=== PATIENT | male | born 1965 | race Caucasian/White ===

== ENCOUNTER 2017-06-26 19:45 | Inpatient (IN) | payer MEDICARE, OTHER ==
[2017-06-26 20:30] VITALS: BP 152/87; PULSE 58; RESP 18; TEMP 98; O2SAT 96
[2017-06-26] MEDS ORDERED: SODIUM CHLOR 0.9% 1000 ML INJ 1,000 ML IV ONE (20:49)
[2017-06-26] MEDS ORDERED: CALC0.25 PO (20:56)
[2017-06-26] MEDS ORDERED: DOXA1TAB43 PO (20:56)
[2017-06-26] MEDS ORDERED: OXYC1TAB63 PO (20:56)
[2017-06-26] MEDS ORDERED: TEMA30CA PO (20:56)
[2017-06-26] MEDS ORDERED: FURO1TAB60 PO (20:56)
[2017-06-26] MEDS ORDERED: METO-309 PO (20:56)
[2017-06-26] MEDS ORDERED: SUCR5CHW CHEW (20:56)
[2017-06-26] MEDS ORDERED: SODI650T PO (20:56)
[2017-06-26] MEDS ORDERED: NIFE60TA58 PO (20:56)
[2017-06-26] MEDS ORDERED: HYDR-3801 PO (20:56)
[2017-06-26] MEDS ORDERED: DIAZ5TAB PO (20:56)
[2017-06-26] MEDS ORDERED: LEVE250T5 PO (20:56)
[2017-06-26] MEDS ORDERED: PANT40TA3 PO (20:56)
[2017-06-26] MEDS ORDERED: DOXAZOSIN MESYLATE 4 MG TAB PO SCH (21:00)
[2017-06-26] MEDS ORDERED: TEMAZEPAM 15 MG CAP PO PRN (21:00)
[2017-06-26] MEDS ORDERED: DIAZEPAM 5 MG TAB PO PRN (21:00)
[2017-06-26] MEDS ORDERED: METOPROLOL TARTRATE 50 MG TAB PO SCH (21:00)
[2017-06-26] MEDS ORDERED: hydrALAZINE HCL 50 MG TAB PO SCH (21:30)
[2017-06-26] MEDS ORDERED: PANTOPRAZOLE SOD 40 MG DELAYED RELEASE TAB PO SCH (21:45)
[2017-06-26] MEDS ORDERED: levETIRAcetam 250 MG TAB PO SCH (21:45)
[2017-06-26] MEDS ORDERED: NIFEdipine 60 MG SUSTAINED RELEASE TAB PO SCH (21:45)
--- NOTE | 2017-06-26 21:49 | HHI.DCPOC ---
Discharge Care Plan Goals to Promote Your Health * To prevent worsening of your condition and complications, take all medications as prescribed * To maintain your health at the optimal level follow all discharge instructions Directions to Meet Your Goals Take your medications as prescribed Follow your dietary instruction Follow activity as directed Keep your appointments as scheduled Take your immunizations and boosters as scheduled If your symptoms worsen call your PCP, if no PCP go to Urgent Care Center or Emergency Room Smoking is Dangerous to Your Health. Avoid second hand smoke Call the 24-hour hour crisis hotline for domestic abuse at Meaghan Saleh MD Jun 26, 2017 21:49
--- NOTE | 2017-06-26 22:02 | HHI.HP ---
[facility] Non-Staff Admission Diagnosis Diagnoses: Travel History International Travel<30 Days: No Contact w/Intl Traveler <30 Da: No Traveled to Known Affected Are: No History of Present Illness 52-year-old male presents for a repeat to kidney transplant. 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 He returned to dialysis on 01/15/15. He is currently on CCPD. He has past medical history significant for post transplant diabetes, CVA with residual right-sided weakness, CAD and end-stage renal disease of unknown etiology. He will be admitted for possible transplant tomorrow morning. He has no complaints at this time. Review of Systems Denies fever or chills Denies blurry vision, otorrhea, rhinorrhea Denies sore throat and cough No chest pain, palpitations, shortness of breath No abdominal pain Denies constipation/diarrhea/nausea/vomiting Denies muscle pain/weakness No rashes Past Family Social History Past Medical History End-stage renal disease status post kidney transplant in 1996 Hypertension Diabetes History of CVA History of GI bleed while on Plavix Pericardial effusion July 2015 CAD Hyperlipidemia Past Surgical History Finger fracture repair Right femoral vein cannulation LAD stent Pericardial window Kidney transplant Reported Medications Reported Meds & Active Scripts Active Reported Levetiracetam 250 Mg Tab 250 Mg PO HS Velphoro (Sucroferric Oxyhydroxide) 500 Mg Chew 500 Mg CHEW TIDPC Calcitriol 0.25 Mcg Cap 0.25 Mcg PO DIRECTED 3 Days Lopressor (Metoprolol Tartrate) 50 Mg Tab 50 Mg PO BID Lasix (Furosemide) 40 Mg Tab 40 Mg PO DAILY Pantoprazole (Pantoprazole Sodium) 40 Mg Tab 40 Mg PO BID Sodium Bicarbonate 650 Mg Tab 650 Mg PO BIDPC Doxazosin (Doxazosin Mesylate) 8 Mg Tab 8 Mg PO BID Nifedipine ER 24 HR (Nifedipine) 60 Mg Tab 60 Mg PO BID Hydralazine (Hydralazine HCl) 100 Mg Tab 50 Mg PO BID Take with meals Oxycodone-Acetaminophen 5-325 mg Tab 1 Tab PO Q4H PRN Diazepam 5 Mg Tab 5 Mg PO BID PRN Temazepam 30 Mg Cap 30 Mg PO HS PRN Allergies: Coded Allergies: diphenhydramine (Verified Allergy, Mild, Insomnia, 06/26/17) atorvastatin (Unverified Allergy, Unknown, Hives, 03/21/17) clarithromycin (Unverified Allergy, Unknown, 03/21/17) lisinopril (Unverified Adverse Reaction, Unknown, Myalgias, 03/21/17) Family History No family history of coronary artery disease or diabetes Social History Never smoker. Rare alcohol. Denies marijuana or illicit drugs. Physical Exam Physical Exam GENERAL: male sitting up in bed SKIN: No rashes, ecchymoses or lesions. Cool and dry. HEAD: Atraumatic. Normocephalic. No temporal or scalp tenderness. EYES: Pupils equal round and reactive. Extraocular motions intact. No scleral icterus. No injection or drainage. ENT: Nose without bleeding, purulent drainage or septal hematoma. Throat without erythema, tonsillar hypertrophy or exudate. Uvula midline. Airway patent. NECK: Trachea midline. No JVD or lymphadenopathy. Supple, nontender, no meningeal signs. CARDIOVASCULAR: Regular rate and rhythm without murmurs, gallops, or rubs. RESPIRATORY: Clear to auscultation. Breath sounds equal bilaterally. No wheezes , rales, or rhonchi. GASTROINTESTINAL: Abdomen soft, non-tender, nondistended. No hepato-splenomegaly , or palpable masses. No guarding. PD catheter in place. MUSCULOSKELETAL: Extremities without clubbing, cyanosis, or edema. No joint tenderness, effusion, or edema noted. No calf tenderness. Negative Homans sign bilaterally. NEUROLOGICAL: Awake and alert. Cranial nerves II through XII intact. Motor and sensory grossly within normal limits. Normal speech. 3/5 right lower extremity strength. No facial droop or right upper extremity weakness. Caprini VTE Risk Assessment Caprini VTE Risk Assessment: No/Low Risk (score <= 1) Caprini Risk Assessment Model Point Value = 1 Point Value = 2 Point Value = 3 Point Value = 5 Age 41-60 Minor surgery BMI > 25 kg/m2 Swollen legs Varicose veins or History of unexplained or recurrent spontaneous Oral contraceptives or hormone replacement Sepsis (< 1 month) Serious lung disease, including pneumonia (< 1 month) Abnormal pulmonary function Acute myocardial infarction Congestive heart failure (< 1 month) History of inflammatory bowel disease Medical patient at bed rest Age 61-74 Arthroscopic surgery Major open surgery (> 45 min) Laparoscopic surgery (> 45 min) Malignancy Confined to bed (> 72 hours) Immobilizing plaster cast Central venous access Age >= 75 History of VTE Family history of VTE Factor V Leiden Prothrombin [id number] Lupus anticoagulant Anticardiolipin antibodies Elevated serum homocysteine Heparin-induced thrombocytopenia Other congenital or acquired thrombophilia Stroke (< 1 month) Elective arthroplasty Hip, pelvis, or leg fracture Acute spinal cord injury (< 1 month) Prophylaxis Regimen Total Risk Factor Score Risk Level Prophylaxis Regimen 0-1 Low Early ambulation 2 Moderate Order ONE of the following: *Sequential Compression Device (SCD) *Heparin 5000 units SQ BID 3-4 Higher Order ONE of the following medications: *Heparin 5000 units SQ TID *Enoxaparin/Lovenox 40 mg SQ daily (WT < 150 kg, CrCl > 30 mL/min) *Enoxaparin/Lovenox 30 mg SQ daily (WT < 150 kg, CrCl > 10-29 mL/min) *Enoxaparin/Lovenox 30 mg SQ BID (WT < 150 kg, CrCl > 30 mL/min) AND/OR *Sequential Compression Device (SCD) 5 or more Highest Order ONE of the following medications: *Heparin 5000 units SQ TID (Preferred with Epidurals) *Enoxaparin/Lovenox 40 mg SQ daily (WT < 150 kg, CrCl > 30 mL/min) *Enoxaparin/Lovenox 30 mg SQ daily (WT < 150 kg, CrCl > 10-29 mL/min) *Enoxaparin/Lovenox 30 mg SQ BID (WT < 150 kg, CrCl > 30 mL/min) AND *Sequential Compression Device (SCD) Assessment and Plan Assessment and Plan 52-year-old male with a past medical history of end-stage renal disease presents for a redo kidney transplant 1. Kidney transplant Spoke with business continuity coordinator Preop labs ordered including type and screen and 2 units packed red blood cells pending Nothing by mouth at midnight Consents will be obtained in the morning 2. ESRD on PD Dr. Guevara consulted, appreciate recommendations 3. Hypertension Continue home medications 4. Hyperlipidemia Continue on statin 5. Anxiety Continue home anxiety meds FEN Nothing by mouth NS at 40 cc/hour Holding pharmacologic anticoagulation in anticipation of OR tomorrow Physician Certification 2 Midnight Certification Type: Admission for Inpatient Services Order for Inpatient Services The services are ordered in accordance with Medicare regulations or non- Medicare payer requirements, as applicable. In the case of services not specified as inpatient-only, they are appropriately provided as inpatient services in accordance with the 2-midnight benchmark. Estimated LOS (days): 2 2 days is the estimated time the patient will need to remain in the hospital, assuming treatment plan goals are met and no additional complications. Post-Hospital Plan: Not yet determined Meaghan Saleh MD Jun 26, 2017 22:02
[2017-06-27] MEDS ORDERED: FUROSEMIDE 40 MG TAB PO SCH (09:00)
[2017-06-27] MEDS ORDERED: SODIUM BICARBONATE 650 MG TAB PO SCH (09:00)
[2017-06-27] MEDS ORDERED: SUCROFERRIC OXYHYDROXIDE 500 MG CHEW SCH (09:30)
[2017-06-27] MEDS ORDERED: [UNRECOGNIZED DRUG - OTHER] PO SCH (09:30)
== END 2017-06-26 22:00 | disposition home or self-care (01) | DRG 682 ==
LOC: HCPC 19:45 → OBSVTOIN 20:58
PROVIDERS: ADMIT Family Medicine; ATTEND Family Medicine
DX: I12.0 Hypertensive chronic kidney disease with stage 5 chronic kidney disease or end stage renal disease (principal); N18.6 End stage renal disease; Z94.0 Kidney transplant status; I69.351 Hemiplegia and hemiparesis following cerebral infarction affecting right dominant side; Z53.8 Procedure and treatment not carried out for other reasons; E78.5 Hyperlipidemia, unspecified; F41.9 Anxiety disorder, unspecified; I25.10 Atherosclerotic heart disease of native coronary artery without angina pectoris; E11.9 Type 2 diabetes mellitus without complications

== ENCOUNTER 2017-10-19 21:29 | Day surgery (SDC) | payer MEDICARE, OTHER ==
[~2017-10-19 21:29] MED LIST: CALC0.25 PO; DIAZ5TAB PO; DOXA1TAB43 PO; FURO1TAB60 PO; HYDR-3801 PO; LEVE250T5 PO; METO-309 PO; NIFE60TA58 PO; OXYC1TAB63 PO; PANT40TA3 PO; SODI650T PO; SUCR5CHW CHEW; TEMA30CA PO
== END 2017-10-19 22:45 | disposition home or self-care (01) ==
LOC: HSDC 21:29 → UNDOADMIN 21:29 → HCPC 21:29 → HSDC 22:45 → EDSTATUS 23:03
PROVIDERS: ATTEND Surgery
DX: N18.6 End stage renal disease (principal); Z53.9 Procedure and treatment not carried out, unspecified reason

== ENCOUNTER 2018-07-06 14:09 | Inpatient (IN) ==
--- NOTE | 2018-07-06 14:53 | ED ---
HPI General Chief Complaint: Psychiatric Symptoms Stated Complaint: psych eval Time Seen by Provider: 07/06/18 14:36 Source: family () Mode of arrival: ambulatory Limitations: altered mental status and other History of Present Illness HPI Narrative: Per manic episode patient taking medications, similar symptoms in November complaint: Reports altered mental status Onset (ago): day(s) (1) Duration: constant History of same: Yes Relieving factors: none Exacerbating factors: none Context: Denies recent alcohol abuse and not taking psychiatric medications Associated psychiatric symptoms: Reports racing thoughts and auditory hallucinations; Denies suicidal ideation Associated symptoms: Reports denies other symptoms Treatments prior to arrival: Reports none Related Data Home Medications Medication Instructions Recorded Confirmed aspirin [Aspir-81] 81 mg PO DAILY 07/06/18 07/06/18 carvedilol 37.5 mg PO BID 07/06/18 07/06/18 divalproex [Depakote ER] 750 mg PO BID 07/06/18 07/07/18 doxazosin 8 mg PO BID 07/06/18 07/07/18 hydralazine 50 mg PO TID 07/06/18 07/06/18 insulin glargine [Lantus U-100 6 units SUBCUT DAILY 07/06/18 07/06/18 Insulin] mycophenolate sodium 720 mg PO BID 07/06/18 07/07/18 nifedipine 60 mg PO BID 07/06/18 07/07/18 olanzapine [Zyprexa] 5 mg PO BID 07/06/18 07/07/18 prednisone 2.5 mg PO DAILY 07/06/18 07/06/18 sulfamethoxazole-trimethoprim 1 tab PO DAILY 07/06/18 07/06/18 [Bactrim] Calcium 600 + D(3) 4,800 mg PO DAILY 07/07/18 07/07/18 belatacept See Label Instructions .ROUTE 07/07/18 07/07/18 .COMPLEX Allergies Allergy/AdvReac Type Severity Reaction Status Date / Time diphenhydramine Allergy Mild Insomnia Verified 07/07/18 09:50 atorvastatin Allergy Unknown Hives Verified 07/07/18 09:50 clarithromycin Allergy Unknown Hives Verified 07/07/18 09:50 lisinopril AdvReac Unknown Myalgias Verified 07/07/18 09:50 Review of Systems ROS: all other systems reviewed are negative Psychiatric Reports behavioral changes, Reports confusion and Denies suicidal ideation PMFSH Social History Social History Substance History: No History of Abuse Second Hand Smoke Exposure: No Smoking Status: Former smoker How Often Do You Have a Drink Containing Alcohol: Unable to Obtain Recent Travel in [facility] within the Last 8 Weeks: No Recent Out of Country Travel within the Last 8 Weeks: No Immunization History Tetanus Immunization: Unsure Exam Narrative Exam Narrative: GENERAL: No acute distress SKIN: Focused skin assessment warm/dry. HEAD: Atraumatic. Normocephalic. EYES: Pupils equal and round. No scleral icterus. No injection or drainage. ENT: No nasal bleeding or discharge. Mucous membranes pink and moist. NECK: Trachea midline. No JVD. CARDIOVASCULAR: Regular rate and rhythm. No murmur appreciated. RESPIRATORY: No accessory muscle use. Clear to auscultation. Breath sounds equal bilaterally. GASTROINTESTINAL: Abdomen soft, non-tender, nondistended. Hepatic and splenic margins not palpable. MUSCULOSKELETAL: No obvious deformities. No clubbing. No cyanosis. No edema. NEUROLOGICAL: Awake and alert. No obvious cranial nerve deficits. Motor grossly within normal limits. Normal speech. PSYCHIATRIC: Pressured sentences, makes eye contact no suicidal or homicidal. Course Reevaluation(s) Reevaluation #1: Pending urinalysis, (d/w derrek orellana to f/u)low risk urosepsis with normal wbc/afebril. conversational with family bedside. No signs of acute medical emergency and can be disposition for psychiatric evaluation Time: 16:45 Initial Documented Vital Signs Temperature 98 F 07/06/18 14:20 Pulse Rate 75 07/06/18 14:20 Respiratory Rate 20 07/06/18 14:20 Blood Pressure 127/70 07/06/18 14:20 Pulse Oximetry 100 07/06/18 14:20 Last Documented Vital Signs Temperature 98.1 F 07/08/18 06:00 Pulse Rate 79 07/08/18 06:00 Respiratory Rate 20 07/08/18 06:00 Blood Pressure 163/88 H 07/08/18 06:00 Pulse Oximetry 98 07/08/18 06:00 Medical Decision Making MDM Narrative Medical decision making narrative: During reevaluation the patient was noted to be hypertensive of which he has a chronic long-term history, and presently he does not have his medications available to him and he has not taken it. Patient was noted to be hypertensive, and anxious. On reevaluation the family was advised to go get his antirejection medications and to provide those to him which the family did. Patient was provided with hydralazine IV x1 and Ativan 1 mg IV x1. The patient is now resting comfortably and sleeping with a blood pressure of 127/74. Patient is medically cleared for psychiatry Medical Screen Exam Complete: Yes Emergency Medical Condition: Yes Lab Data Result diagrams: 07/08/18 09:48 07/06/18 14:52 Lab Results 07/06/18 07/06/18 07/06/18 Range/Units 14:52 14:52 14:52 WBC 4.9 (4.0-11.0) th/mm3 RBC 4.18 L (4.50-5.90) mil/mm3 Hgb 14.0 (13.0-17.0) gm/dL Hct 41.3 (39.0-51.0) % MCV 98.7 (80.0-100.0) fL MCH 33.6 (27.0-34.0) pg MCHC 34.0 (32.0-36.0) % RDW 14.4 (11.6-17.2) % Plt Count 139 L (150-450) th/mm3 MPV 9.6 (7.0-11.0) fL Neut % (Auto) 76.9 H (16.0-70.0) % Lymph % (Auto) 7.2 L (9.0-44.0) % [place] % (Auto) 10.9 H (0.0-8.0) % Eos % (Auto) 4.6 H (0.0-4.0) % Baso % (Auto) 0.4 (0.0-2.0) % Neut # (Auto) 3.8 (1.8-7.7) th/mm3 Lymph # (Auto) 0.4 L (1.0-4.8) th/mm3 [place] # (Auto) 0.5 (0.0-0.9) th/mm3 Eos # (Auto) 0.2 (0.0-0.4) th/mm3 Baso # (Auto) 0.0 (0.0-0.2) th/mm3 WBC Differential . Differential Comment Auto diff final Sodium 135 L (136-145) meq/L Potassium 4.5 (3.5-5.1) meq/L Chloride 99 (98-107) meq/L Carbon Dioxide 30.5 (21.0-32.0) meq/L Anion Gap 6 (5-15) meq/L BUN 12 (7-18) mg/dL Creatinine 0.93 (0.60-1.30) mg/dL Estimated GFR 84 L (>89) mL/min POC Glucose (68-110) mg/dl Random Glucose 243 H (74-106) mg/dL Calcium 9.4 (8.5-10.1) mg/dL Magnesium 2.0 (1.5-2.5) mg/dL Total Bilirubin 0.3 (0.2-1.0) mg/dL AST 19 (15-37) U/L ALT 22 (12-78) U/L Alkaline Phosphatase 119 H (45-117) U/L Ammonia (11-32) mcmol/L Total Protein 7.0 (6.4-8.2) g/dL Albumin 3.6 (3.4-5.0) g/dL Triglycerides (42-150) mg/dL Cholesterol (120-200) mg/dL LDL Cholesterol, Calc (0-99) mg/dL HDL Cholesterol (40.0-60.0) mg/dL Cholesterol/HDL Ratio Ratio TSH 0.896 (0.358-3.740) uIU/mL Urine Color (Yellw/Straw) Urine Clarity (Clear) Urine pH (5.0-8.5) Ur Specific [place] (1.002-1.035) Urine Protein (Neg-Trace) mg/dL Urine Glucose (UA) (Negative) mg/dL Urine Ketones (Negative) mg/dL Urine Occult Blood (Negative) Urine Nitrate (Negative) Urine Bilirubin (Negative) Urine Urobilinogen (Less than 2) mg/dL Ur Leukocyte Esterase (Negative) Urine WBC (0-5) /hpf Amorphous Sediment (None) /hpf Ur Microscopic Review Salicylates Less than 1.7 L (2.8-20.0) mg/dL Urine Opiates Screen (Neg) Acetaminophen Less than 2.0 L (10.0-30.0) mcg/mL Ur Barbiturates Screen (Neg) Valproic Acid (50-100) mcg/mL Ur Amphetamines Screen (Neg) U Benzodiazepines Scrn (Neg) Urine Cocaine Screen (Neg) U Cannabinoids Screen (Neg) Serum Alcohol 4 (0-5) mg/dL 07/06/18 07/06/18 07/06/18 Range/Units 14:52 14:52 15:10 WBC (4.0-11.0) th/mm3 RBC (4.50-5.90) mil/mm3 Hgb (13.0-17.0) gm/dL Hct (39.0-51.0) % MCV (80.0-100.0) fL MCH (27.0-34.0) pg MCHC (32.0-36.0) % RDW (11.6-17.2) % Plt Count (150-450) th/mm3 MPV (7.0-11.0) fL Neut % (Auto) (16.0-70.0) % Lymph % (Auto) (9.0-44.0) % [place] % (Auto) (0.0-8.0) % Eos % (Auto) (0.0-4.0) % Baso % (Auto) (0.0-2.0) % Neut # (Auto) (1.8-7.7) th/mm3 Lymph # (Auto) (1.0-4.8) th/mm3 [place] # (Auto) (0.0-0.9) th/mm3 Eos # (Auto) (0.0-0.4) th/mm3 Baso # (Auto) (0.0-0.2) th/mm3 WBC Differential Differential Comment Sodium (136-145) meq/L Potassium (3.5-5.1) meq/L Chloride (98-107) meq/L Carbon Dioxide (21.0-32.0) meq/L Anion Gap (5-15) meq/L BUN (7-18) mg/dL Creatinine (0.60-1.30) mg/dL Estimated GFR (>89) mL/min POC Glucose (68-110) mg/dl Random Glucose (74-106) mg/dL Calcium (8.5-10.1) mg/dL Magnesium (1.5-2.5) mg/dL Total Bilirubin (0.2-1.0) mg/dL AST (15-37) U/L ALT (12-78) U/L Alkaline Phosphatase (45-117) U/L Ammonia 36 H (11-32) mcmol/L Total Protein (6.4-8.2) g/dL Albumin (3.4-5.0) g/dL Triglycerides (42-150) mg/dL Cholesterol (120-200) mg/dL LDL Cholesterol, Calc (0-99) mg/dL HDL Cholesterol (40.0-60.0) mg/dL Cholesterol/HDL Ratio Ratio TSH (0.358-3.740) uIU/mL Urine Color Straw (Yellw/Straw) Urine Clarity Clear (Clear) Urine pH 8.0 (5.0-8.5) Ur Specific [place] 1.009 (1.002-1.035) Urine Protein Negative (Neg-Trace) mg/dL Urine Glucose (UA) 150 H (Negative) mg/dL Urine Ketones Negative (Negative) mg/dL Urine Occult Blood Negative (Negative) Urine Nitrate Negative (Negative) Urine Bilirubin Negative (Negative) Urine Urobilinogen Less than 2 (Less than 2) mg/dL Ur Leukocyte Esterase Negative (Negative) Urine WBC Less than 1 (0-5) /hpf Amorphous Sediment Rare H (None) /hpf Ur Microscopic Review Not Reportable Salicylates (2.8-20.0) mg/dL Urine Opiates Screen Neg (Neg) Acetaminophen (10.0-30.0) mcg/mL Ur Barbiturates Screen Neg (Neg) Valproic Acid (50-100) mcg/mL Ur Amphetamines Screen Neg (Neg) U Benzodiazepines Scrn Neg (Neg) Urine Cocaine Screen Neg (Neg) U Cannabinoids Screen Neg (Neg) Serum Alcohol (0-5) mg/dL 07/06/18 07/07/18 07/07/18 Range/Units 15:10 16:54 20:17 WBC (4.0-11.0) th/mm3 RBC (4.50-5.90) mil/mm3 Hgb (13.0-17.0) gm/dL Hct (39.0-51.0) % MCV (80.0-100.0) fL MCH (27.0-34.0) pg MCHC (32.0-36.0) % RDW (11.6-17.2) % Plt Count (150-450) th/mm3 MPV (7.0-11.0) fL Neut % (Auto) (16.0-70.0) % Lymph % (Auto) (9.0-44.0) % [place] % (Auto) (0.0-8.0) % Eos % (Auto) (0.0-4.0) % Baso % (Auto) (0.0-2.0) % Neut # (Auto) (1.8-7.7) th/mm3 Lymph # (Auto) (1.0-4.8) th/mm3 [place] # (Auto) (0.0-0.9) th/mm3 Eos # (Auto) (0.0-0.4) th/mm3 Baso # (Auto) (0.0-0.2) th/mm3 WBC Differential Differential Comment Sodium (136-145) meq/L Potassium (3.5-5.1) meq/L Chloride (98-107) meq/L Carbon Dioxide (21.0-32.0) meq/L Anion Gap (5-15) meq/L BUN (7-18) mg/dL Creatinine (0.60-1.30) mg/dL Estimated GFR (>89) mL/min POC Glucose 165 H 142 H (68-110) mg/dl Random Glucose (74-106) mg/dL Calcium (8.5-10.1) mg/dL Magnesium (1.5-2.5) mg/dL Total Bilirubin (0.2-1.0) mg/dL AST (15-37) U/L ALT (12-78) U/L Alkaline Phosphatase (45-117) U/L Ammonia (11-32) mcmol/L Total Protein (6.4-8.2) g/dL Albumin (3.4-5.0) g/dL Triglycerides (42-150) mg/dL Cholesterol (120-200) mg/dL LDL Cholesterol, Calc (0-99) mg/dL HDL Cholesterol (40.0-60.0) mg/dL Cholesterol/HDL Ratio Ratio TSH (0.358-3.740) uIU/mL Urine Color (Yellw/Straw) Urine Clarity (Clear) Urine pH (5.0-8.5) Ur Specific [place] (1.002-1.035) Urine Protein (Neg-Trace) mg/dL Urine Glucose (UA) (Negative) mg/dL Urine Ketones (Negative) mg/dL Urine Occult Blood (Negative) Urine Nitrate (Negative) Urine Bilirubin (Negative) Urine Urobilinogen (Less than 2) mg/dL Ur Leukocyte Esterase (Negative) Urine WBC (0-5) /hpf Amorphous Sediment (None) /hpf Ur Microscopic Review Salicylates (2.8-20.0) mg/dL Urine Opiates Screen (Neg) Acetaminophen (10.0-30.0) mcg/mL Ur Barbiturates Screen (Neg) Valproic Acid 77 (50-100) mcg/mL Ur Amphetamines Screen (Neg) U Benzodiazepines Scrn (Neg) Urine Cocaine Screen (Neg) U Cannabinoids Screen (Neg) Serum Alcohol (0-5) mg/dL 07/08/18 07/08/18 07/08/18 Range/Units 06:09 09:48 09:48 WBC 5.4 (4.0-11.0) th/mm3 RBC 4.32 L (4.50-5.90) mil/mm3 Hgb 14.4 (13.0-17.0) gm/dL Hct 43.0 (39.0-51.0) % MCV 99.6 (80.0-100.0) fL MCH 33.4 (27.0-34.0) pg MCHC 33.6 (32.0-36.0) % RDW 14.3 (11.6-17.2) % Plt Count 164 (150-450) th/mm3 MPV 9.3 (7.0-11.0) fL Neut % (Auto) 74.5 H (16.0-70.0) % Lymph % (Auto) 8.1 L (9.0-44.0) % [place] % (Auto) 12.0 H (0.0-8.0) % Eos % (Auto) 4.7 H (0.0-4.0) % Baso % (Auto) 0.7 (0.0-2.0) % Neut # (Auto) 4.0 (1.8-7.7) th/mm3 Lymph # (Auto) 0.4 L (1.0-4.8) th/mm3 [place] # (Auto) 0.6 (0.0-0.9) th/mm3 Eos # (Auto) 0.3 (0.0-0.4) th/mm3 Baso # (Auto) 0.0 (0.0-0.2) th/mm3 WBC Differential . Differential Comment Auto diff final Sodium (136-145) meq/L Potassium (3.5-5.1) meq/L Chloride (98-107) meq/L Carbon Dioxide (21.0-32.0) meq/L Anion Gap (5-15) meq/L BUN (7-18) mg/dL Creatinine (0.60-1.30) mg/dL Estimated GFR (>89) mL/min POC Glucose 151 H (68-110) mg/dl Random Glucose (74-106) mg/dL Calcium (8.5-10.1) mg/dL Magnesium (1.5-2.5) mg/dL Total Bilirubin (0.2-1.0) mg/dL AST (15-37) U/L ALT (12-78) U/L Alkaline Phosphatase (45-117) U/L Ammonia (11-32) mcmol/L Total Protein (6.4-8.2) g/dL Albumin (3.4-5.0) g/dL Triglycerides 112 (42-150) mg/dL Cholesterol 166 (120-200) mg/dL LDL Cholesterol, Calc 94 (0-99) mg/dL HDL Cholesterol 50.0 (40.0-60.0) mg/dL Cholesterol/HDL Ratio 3.32 Ratio TSH 0.897 (0.358-3.740) uIU/mL Urine Color (Yellw/Straw) Urine Clarity (Clear) Urine pH (5.0-8.5) Ur Specific [place] (1.002-1.035) Urine Protein (Neg-Trace) mg/dL Urine Glucose (UA) (Negative) mg/dL Urine Ketones (Negative) mg/dL Urine Occult Blood (Negative) Urine Nitrate (Negative) Urine Bilirubin (Negative) Urine Urobilinogen (Less than 2) mg/dL Ur Leukocyte Esterase (Negative) Urine WBC (0-5) /hpf Amorphous Sediment (None) /hpf Ur Microscopic Review Salicylates (2.8-20.0) mg/dL Urine Opiates Screen (Neg) Acetaminophen (10.0-30.0) mcg/mL Ur Barbiturates Screen (Neg) Valproic Acid 61 (50-100) mcg/mL Ur Amphetamines Screen (Neg) U Benzodiazepines Scrn (Neg) Urine Cocaine Screen (Neg) U Cannabinoids Screen (Neg) Serum Alcohol (0-5) mg/dL 07/08/18 Range/Units 11:38 WBC (4.0-11.0) th/mm3 RBC (4.50-5.90) mil/mm3 Hgb (13.0-17.0) gm/dL Hct (39.0-51.0) % MCV (80.0-100.0) fL MCH (27.0-34.0) pg MCHC (32.0-36.0) % RDW (11.6-17.2) % Plt Count (150-450) th/mm3 MPV (7.0-11.0) fL Neut % (Auto) (16.0-70.0) % Lymph % (Auto) (9.0-44.0) % [place] % (Auto) (0.0-8.0) % Eos % (Auto) (0.0-4.0) % Baso % (Auto) (0.0-2.0) % Neut # (Auto) (1.8-7.7) th/mm3 Lymph # (Auto) (1.0-4.8) th/mm3 [place] # (Auto) (0.0-0.9) th/mm3 Eos # (Auto) (0.0-0.4) th/mm3 Baso # (Auto) (0.0-0.2) th/mm3 WBC Differential Differential Comment Sodium (136-145) meq/L Potassium (3.5-5.1) meq/L Chloride (98-107) meq/L Carbon Dioxide (21.0-32.0) meq/L Anion Gap (5-15) meq/L BUN (7-18) mg/dL Creatinine (0.60-1.30) mg/dL Estimated GFR (>89) mL/min POC Glucose 156 H (68-110) mg/dl Random Glucose (74-106) mg/dL Calcium (8.5-10.1) mg/dL Magnesium (1.5-2.5) mg/dL Total Bilirubin (0.2-1.0) mg/dL AST (15-37) U/L ALT (12-78) U/L Alkaline Phosphatase (45-117) U/L Ammonia (11-32) mcmol/L Total Protein (6.4-8.2) g/dL Albumin (3.4-5.0) g/dL Triglycerides (42-150) mg/dL Cholesterol (120-200) mg/dL LDL Cholesterol, Calc (0-99) mg/dL HDL Cholesterol (40.0-60.0) mg/dL Cholesterol/HDL Ratio Ratio TSH (0.358-3.740) uIU/mL Urine Color (Yellw/Straw) Urine Clarity (Clear) Urine pH (5.0-8.5) Ur Specific [place] (1.002-1.035) Urine Protein (Neg-Trace) mg/dL Urine Glucose (UA) (Negative) mg/dL Urine Ketones (Negative) mg/dL Urine Occult Blood (Negative) Urine Nitrate (Negative) Urine Bilirubin (Negative) Urine Urobilinogen (Less than 2) mg/dL Ur Leukocyte Esterase (Negative) Urine WBC (0-5) /hpf Amorphous Sediment (None) /hpf Ur Microscopic Review Salicylates (2.8-20.0) mg/dL Urine Opiates Screen (Neg) Acetaminophen (10.0-30.0) mcg/mL Ur Barbiturates Screen (Neg) Valproic Acid (50-100) mcg/mL Ur Amphetamines Screen (Neg) U Benzodiazepines Scrn (Neg) Urine Cocaine Screen (Neg) U Cannabinoids Screen (Neg) Serum Alcohol (0-5) mg/dL Imaging Data Radiologist's impression: Head CT 07/06/18 15:38 CONCLUSION: 1. 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 2. Periventricular areas of decreased attenuation bilaterally which are most severe involving the left posterior parietal white matter consistent with ischemic changes and/or possible encephalomalacia of the posterior parietal lobe. 3. Mild cerebral atrophy. 4. No acute hemorrhage, midline shift or extra-axial fluid collections. . Chest X-Ray 07/06/18 15:40 CONCLUSION: No acute cardiopulmonary process. Discharge Plan Discharge Disposition Patient Disposition: ED Admit(ED Internal Use Only) Discharge Condition Condition: Stable Discharge Details Diagnosis: Bipolar affect, depressed Physicians Team ED Provider: Mihai Mcqueen Primary Care Provider: UNKNOWN, Attending Provider: Jonathan Ronquillo Other Providers: Bryant Mccabe ; Antonia Garrett Discharge Interventions Interventions: ED Discharge Assessment Last Done: 07/07/18 19:36 Status ED Status: Left Department Discharge Information Discharge Date/Time: 07/07/18 19:36
[2018-07-06 15:22] LABS: Baso % (Auto) 0.4 % (0.0-2.0); Eos # (Auto) 0.2 th/mm3 (0.0-0.4); Eos % (Auto) 4.6 % (0.0-4.0); Hematocrit 41.3 % (39.0-51.0); Lymph # (Auto) 0.4 th/mm3 (1.0-4.8); Lymph % (Auto) 7.2 % (9.0-44.0); Mean Corpuscular Hemoglobin 33.6 pg (27.0-34.0); Mean Corpuscular Volume 98.7 fL (80.0-100.0); Mean Platelet Volume 9.6 fL (7.0-11.0); Mono # (Auto) 0.5 th/mm3 (0.0-0.9); Mono % (Auto) 10.9 % (0.0-8.0); Neut # (Auto) 3.8 th/mm3 (1.8-7.7); Neut % (Auto) 76.9 % (16.0-70.0); Platelet Count 139 th/mm3 (150-450); Red Blood Count 4.18 mil/mm3 (4.50-5.90); Red Cell Distribution Width 14.4 % (11.6-17.2); White Blood Count 4.9 th/mm3 (4.0-11.0)
[2018-07-06 15:34] LABS: Amphetamine Screen,Urine Neg (Neg); Barbiturate Screen,Urine Neg (Neg); Cannabinoid Screen,Urine Neg (Neg); Cocaine Screen,Urine Neg (Neg)
[2018-07-06 15:36] LABS: Opiate Screen,Urine Neg (Neg)
[2018-07-06 15:41] LABS: Anion Gap 6 meq/L (5-15)
[2018-07-06 16:03] LABS: Alanine Aminotransferase 22 U/L (12-78); Albumin 3.6 g/dL (3.4-5.0); Alcohol 4 mg/dL (0-5); Alkaline Phosphatase 119 U/L (45-117); Aspartate Aminotransferase 19 U/L (15-37); Blood Urea Nitrogen 12 mg/dL (7-18); Calcium 9.4 mg/dL (8.5-10.1); Carbon Dioxide 30.5 meq/L (21.0-32.0); Chloride 99 meq/L (98-107); Glomerular Filtration Rate 84 mL/min (>89); Glucose,Random 243 mg/dL (74-106); Potassium 4.5 meq/L (3.5-5.1); Sodium 135 meq/L (136-145); Thyroid Stimulating Hormone 0.896 uIU/mL (0.358-3.740)
--- NOTE | 2018-07-06 16:06 | XR ---
EXAM DATE: 07/06/2018 4:03 PM EST AGE/SEX: 53 years / Male INDICATIONS: Cough, short of breath. CLINICAL DATA: This is the patient's initial encounter. Patient reports that signs and symptoms have been present for 1 day and indicates a pain score of 0/10. MEDICAL/SURGICAL HISTORY: None. None. COMPARISON: No prior exams available for comparison. FINDINGS: A single AP view of the chest demonstrates the lungs to be symmetrically aerated without evidence of mass, infiltrate or effusion. The cardiomediastinal contours are unremarkable. Osseous structures a re intact. CONCLUSION: No acute cardiopulmonary process. Electronically signed by: Bandar Escoto MD 07/06/2018 4:04 PM EST
--- NOTE | 2018-07-06 16:34 | CT ---
EXAM DATE: 07/06/2018 4:27 PM EST AGE/SEX: 53 years / Male INDICATIONS: Altered Mental Status CLINICAL DATA: This is the patient's initial encounter. Patient reports that signs and symptoms have been present for 1 day and indicates a pain score of 0/10. MEDICAL/SURGICAL HISTORY: None. Renal transplant. RADIATION DOSE: 56.35 CTDI (mGy) COMPARISON: No prior exams available for comparison. TECHNIQUE: CT of the head without contrast. Using automated exposure control and adjustment of the mA and/or kV according to patient size, radiation dose was kept as low as reasonably achievable to ob tain optimal diagnostic quality images. DICOM format image data is available electronically for revi ew and comparison. FINDINGS: Cerebrum: Old infarct involving the left thalamus is noted. Periventricular areas of decreased atten uation are noted within the left posterior parietal white matter consistent with ischemic changes and /or possible encephalomalacia. Mild cerebral atrophy is noted. No acute hemorrhage, midline shift or extra-axial fluid collections are noted.. Posterior Fossa: The cerebellum and brainstem are intact. The 4th ventricle is midline. The cerebe llopontine angle is unremarkable. Extracranial: The visualized portion of the orbits is intact. Skull: The calvaria is intact. No evidence of skull fracture. CONCLUSION: 1. 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 2. Periventricular areas of decreased attenuation bilaterally which are most severe involving the le ft posterior parietal white matter consistent with ischemic changes and/or possible encephalomalacia of the posterior parietal lobe. 3. Mild cerebral atrophy. 4. No acute hemorrhage, midline shift or extra-axial fluid collections. . Electronically signed by: Ashu Garcia MD 07/06/2018 4:33 PM EST
[2018-07-06 17:27] LABS: Amorphous Sediment,Urine Rare /hpf; Bilirubin,Urine Negative (Negative); Clarity,Urine Clear (Clear); Color,Urine Straw (Yellw/Straw); Glucose,Urine (UA) 150 mg/dL (Negative); Leukocyte Esterase,Urine Negative (Negative); Nitrite,Urine Negative (Negative); Specific Gravity,Urine 1.009 (1.002-1.035)
[2018-07-06] MEDS ORDERED: hydrALAZINE HCl Inj 20 MG/ML Vial IV.PUSH ONE (22:16)
[2018-07-07] MEDS ORDERED: Aluminum/Magnesium/Simethacone Susp 30 ML UDC PO PRN (12:58)
[2018-07-07] MEDS ORDERED: Senna/Docusate Sodium 8.6/50 MG Tablet PO PRN (12:58)
[2018-07-07] MEDS ORDERED: Bisacodyl 10 MG Supp RECTAL PRN (12:58)
--- NOTE | 2018-07-07 13:15 | P.HPPSY ---
Provisional Diagnosis Admission Date: July 07, 2018 13:02 [place] I.: Bipolar disorder, manic episode Competence Certification of Person's Competence To Provide Express and Informed Consent I have personally examined Arun Steel, a person being served at [facility] on, July 07, 2018 1306. Express and informed consent means consent voluntarily given in writing, by a competent person, after sufficient explanation and disclosure of the subject matter involved to enable the person to make a knowing and willful decision without any element of force, fraud, deceit, duress, or other form of constraint or coercion. This person is 18 years of age or older, is not now known to be incompetent to consent to treatment with a guardian advocate, and does not have a health care surrogate or proxy currently making medical treatment decisions. I have found this person to be one of the following: [] Competent to provide express and informed consent, as defined above, for voluntary admission to this facility and is competent to provide express and informed consent for treatment. He/she has the consistent capacity to make well reasoned, willful, and knowing decisions concerning his or her medical or mental health treatment. The person fully and consistently understands the purpose of the admission for examination/placement and is fully capable of personally exercising all rights [place]] Incompetent to provide express and informed consent to voluntary admission , and this is incompetent to provide express and informed consent to treatment. The person must be transferred to involuntary status and a petition for a guardian advocate filed with the Circuit Court. [] Refusing to provide express and informed consent to voluntary admission but is competent to provide express and informed consent for treatment. The person must be discharged or transferred to involuntary status. Form shall be completed within 24 hours of a person's arrival at the receiving facility and filed in the clinical record of each person: 1. Admitted on a voluntary basis 2. Permitted to provide express and informed consent to his/her own treatment 3. Allowed to transfer from involuntary to voluntary status 4. Prior to permitting a person to consent to his or her own treatment after having been previously found incompetent to consent to treatment. History of Present Illness Capacity: Lacks capacity History of Present Illness: Patient is a 53 y/o man, , domiciled with , unemployed with unclear past psychiatric history, prior psychiatric admissions, no prior suicide attempts, with past medical history of DM, renal transplant, brought in by EMS with stating patient having manic episode which upon evaluation was noted to have disorganized thought process, flight of ideas, tangential, pressured speech, unable to engage effectively in interview secondary to current manic symptoms which patient was admitted to the inpatient psychiatry unit for further evaluation and management. Patient was found lying hospital bed with sitter at bedside seen with nurse, noted to be, cooperative. Patient was noted to have disorganization during interview unable to provide any adequate history noted to have flight of ideas and tangential along with pressured speech. Patient would make nonsensical statements and at times would have loosening associations. Patient also reported having decreased episodes of sleep, mentioning wanting to spend his money to give away during [place], admitting to having rapid thoughts, but denying any suicidal homicidal ideations , patient denies any auditory or visual hallucinations. Collateral formation obtained from patient's stated that patient recently had a kidney transplant in November in [place] and was on a immunosuppressant, tacrolimus and had presented with manic symptoms at that time which concern of betsey induced by this medication was considered and was discontinued. She states that a month ago patient started doing "crazy things" and since has been on a different medication via IV infusion called belatacept which she missed 1 week ago and is administered monthly. She mentions that patient had previous psychiatric admissions recently which patient was at a [place] psychiatric facility from June 25- and a subsequent admission at [facility] in [place] from June 29- and was discharged. She states that yesterday patient has had at least 2 days without sleep, presenting as described above and states that patient has been compliant with medications. She states she is attempting to contact the clinic regarding his IV infusion of belatacept which she is overdue for. She agrees to consent to be patient's healthcare surrogate and guardian advocate for this admission. Discussion of having patient resume Depakote and olanzapine was reviewed with patient's and benefits/risks/adverse drug reactions/alternatives was reviewed as well which she agreed. Past psychiatric history: Previous psychiatric diagnoses of bipolar disorder, prior psychiatric admissions as stated above, no previous suicide attempts Substance use history: Denies Past medical history: Diabetes, recent renal transplant in November ([place]). Allergies: Diphenhydramine, atorvastatin, clarithromycin, lisinopril Social history: , has 2 children, domiciled . - Inpatient Certification I certify that the inpatient services were ordered in accordance with Medicare regulations governing the order. This includes certification that hospital inpatient services are reasonable and necessary and in the case of services not specified as inpatient-only under 42 CFR 419.22(n), that they are appropriately provided as inpatient services in accordance to with the 2-midnight benchmark under 43 CFR 412.3(e) I certify that inpatient psychiatric hospital services are medically necessary. Evaluation and treatment and/or diagnostic testing are expected to improve the patient's condition. The patient needs on a daily basis, active treatment furnished directly by or requiring the supervision of inpatient psychiatric facility personnel. Estimated Total Length of Stay (Days): 7 Plans for Post Hospital Care: Not yet determined Review of Systems All other systems reviewed negative except as stated in HPI [facility] - History History Provided By: Patient, Family Member, Medical Record - Tobacco History Smoking Status: Former smoker - Alcohol History How Often Do You Have a Drink Containing Alcohol: Unable to Obtain - Substance Use History Substance History: No History of Abuse - Travel History Recent Travel in the [place] Within the Last 8 Weeks: No Recent Travel Out of the Country Within the Last 8 Weeks: No - Immunization History Tetanus Immunization: Unsure Quality Measures - Psychiatric History Psychological trauma history: Unable to assess due to current mental status Violence risk to others in the last 6 months: Low Violence risk to self in the last 6 months: Low - Substance Abuse History Drug or alcohol use in the past 12 months: Denies - Patient Strengths Patient's strengths (minimum of 2): Verbal and communicative Medications and Allergies Active Medications: Active Medications Acetaminophen (Tylenol) 650 mg PO Q4H PRN PRN Reason: Pain 1-5 or Temp >101F Al Hydrox/Mg Hydrox/Simethicone (Mag-Al Plus Susp Liq) 30 ml PO Q6H PRN PRN Reason: DYSPEPSIA Al Hydroxide/Mg Hydroxide (Milk Of Magnesia Liq) 30 ml PO Q12H PRN PRN Reason: Mild Constipation Bisacodyl (Dulcolax Supp) 10 mg RECTAL DAILY PRN PRN Reason: SEVERE CONSITIPATION Lactulose (Lactulose Liq) 30 ml PO DAILY PRN PRN Reason: SEVERE CONSITIPATION Lorazepam (Ativan) 1 mg PO Q6H PRN PRN Reason: MODERATE TO SEVERE ANXIETY Olanzapine (Zyprexa Inj) 10 mg IM Q12H PRN PRN Reason: SEVERE AGITATION Senna/Docusate Sodium (Wendi-Colace) 1 tab PO BID PRN PRN Reason: CONSTIPATION Sennosides (Senokot) 17.2 mg PO Q12H PRN PRN Reason: Moderate Constipation Trazodone HCl (Desyrel) 50 mg PO HS PRN PRN Reason: INSOMNIA Allergies Allergy/AdvReac Type Severity Reaction Status Date / Time diphenhydramine Allergy Mild Insomnia Verified 07/07/18 09:50 atorvastatin Allergy Unknown Hives Verified 07/07/18 09:50 clarithromycin Allergy Unknown Hives Verified 07/07/18 09:50 lisinopril AdvReac Unknown Myalgias Verified 07/07/18 09:50 Home Medications Medication Instructions Recorded Confirmed Type aspirin [Aspir-81] 81 mg PO DAILY 07/06/18 07/06/18 History carvedilol 37.5 mg PO BID 07/06/18 07/06/18 History divalproex [Depakote ER] 750 mg PO BID 07/06/18 07/07/18 History doxazosin 8 mg PO BID 07/06/18 07/07/18 History hydralazine 50 mg PO TID 07/06/18 07/06/18 History insulin glargine [Lantus U-100 6 units SUBCUT DAILY 07/06/18 07/06/18 History Insulin] mycophenolate sodium 720 mg PO BID 07/06/18 07/07/18 History nifedipine 60 mg PO BID 07/06/18 07/07/18 History olanzapine [Zyprexa] 5 mg PO BID 07/06/18 07/07/18 History prednisone 2.5 mg PO DAILY 07/06/18 07/06/18 History sulfamethoxazole-trimethoprim 1 tab PO DAILY 07/06/18 07/06/18 History [Bactrim] Calcium 600 + D(3) 4,800 mg PO DAILY 07/07/18 07/07/18 History belatacept See Label Instructions .ROUTE 07/07/18 07/07/18 History .COMPLEX Results - Labs CBC & Chem 7: 07/06/18 14:52 07/06/18 14:52 Labs: Laboratory Results - last 24 hr 07/06/18 07/06/18 07/06/18 14:52 14:52 14:52 WBC 4.9 RBC 4.18 L Hgb 14.0 Hct 41.3 MCV 98.7 MCH 33.6 MCHC 34.0 RDW 14.4 Plt Count 139 L MPV 9.6 Neut % (Auto) 76.9 H Lymph % (Auto) 7.2 L [place] % (Auto) 10.9 H Eos % (Auto) 4.6 H Baso % (Auto) 0.4 Neut # (Auto) 3.8 Lymph # (Auto) 0.4 L [place] # (Auto) 0.5 Eos # (Auto) 0.2 Baso # (Auto) 0.0 WBC Differential . Differential Comment Auto diff final Sodium 135 L Potassium 4.5 Chloride 99 Carbon Dioxide 30.5 Anion Gap 6 BUN 12 Creatinine 0.93 Estimated GFR 84 L Random Glucose 243 H Calcium 9.4 Magnesium 2.0 Total Bilirubin 0.3 AST 19 ALT 22 Alkaline Phosphatase 119 H Ammonia Total Protein 7.0 Albumin 3.6 TSH 0.896 Urine Color Urine Clarity Urine pH Ur Specific [place] Urine Protein Urine Glucose (UA) Urine Ketones Urine Occult Blood Urine Nitrate Urine Bilirubin Urine Urobilinogen Ur Leukocyte Esterase Urine WBC Amorphous Sediment Ur Microscopic Review Salicylates Less than 1.7 L Urine Opiates Screen Acetaminophen Less than 2.0 L Ur Barbiturates Screen Valproic Acid Ur Amphetamines Screen U Benzodiazepines Scrn Urine Cocaine Screen U Cannabinoids Screen Serum Alcohol 4 07/06/18 07/06/18 07/06/18 14:52 14:52 15:10 WBC RBC Hgb Hct MCV MCH MCHC RDW Plt Count MPV Neut % (Auto) Lymph % (Auto) [place] % (Auto) Eos % (Auto) Baso % (Auto) Neut # (Auto) Lymph # (Auto) [place] # (Auto) Eos # (Auto) Baso # (Auto) WBC Differential Differential Comment Sodium Potassium Chloride Carbon Dioxide Anion Gap BUN Creatinine Estimated GFR Random Glucose Calcium Magnesium Total Bilirubin AST ALT Alkaline Phosphatase Ammonia 36 H Total Protein Albumin TSH Urine Color Straw Urine Clarity Clear Urine pH 8.0 Ur Specific [place] 1.009 Urine Protein Negative Urine Glucose (UA) 150 H Urine Ketones Negative Urine Occult Blood Negative Urine Nitrate Negative Urine Bilirubin Negative Urine Urobilinogen Less than 2 Ur Leukocyte Esterase Negative Urine WBC Less than 1 Amorphous Sediment Rare H Ur Microscopic Review Not Reportable Salicylates Urine Opiates Screen Neg Acetaminophen Ur Barbiturates Screen Neg Valproic Acid Ur Amphetamines Screen Neg U Benzodiazepines Scrn Neg Urine Cocaine Screen Neg U Cannabinoids Screen Neg Serum Alcohol 07/06/18 15:10 WBC RBC Hgb Hct MCV MCH MCHC RDW Plt Count MPV Neut % (Auto) Lymph % (Auto) [place] % (Auto) Eos % (Auto) Baso % (Auto) Neut # (Auto) Lymph # (Auto) [place] # (Auto) Eos # (Auto) Baso # (Auto) WBC Differential Differential Comment Sodium Potassium Chloride Carbon Dioxide Anion Gap BUN Creatinine Estimated GFR Random Glucose Calcium Magnesium Total Bilirubin AST ALT Alkaline Phosphatase Am[place]ia Total Protein Albumin TSH Urine Color Urine Clarity Urine pH Ur Specific [place] Urine Protein Urine Glucose (UA) Urine Ketones Urine Occult Blood Urine Nitrate Urine Bilirubin Urine Urobilinogen Ur Leukocyte Esterase Urine WBC Amorphous Sediment Ur Microscopic Review Salicylates Urine Opiates Screen Acetaminophen Ur Barbiturates Screen Valproic Acid 77 Ur Amphetamines Screen U Benzodiazepines Scrn Urine Cocaine Screen U Cannabinoids Screen Serum Alcohol - Imaging Impressions Head CT 07/06/18 15:38 CONCLUSION: 1. 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 2. Periventricular areas of decreased attenuation bilaterally which are most severe involving the left posterior parietal white matter consistent with ischemic changes and/or possible encephalomalacia of the posterior parietal lobe. 3. Mild cerebral atrophy. 4. No acute hemorrhage, midline shift or extra-axial fluid collections. . Chest X-Ray 07/06/18 15:40 CONCLUSION: No acute cardiopulmonary process. Exam Vital signs: Vital Signs 07/06/18 14:20 07/06/18 17:54 07/06/18 21:45 Temperature 98 F Pulse Rate 75 73 72 Respiratory Rate 20 20 20 Blood Pressure 127/70 147/93 H 177/111 H Pulse Oximetry 100 100 97 07/06/18 23:13 07/06/18 23:30 07/07/18 01:00 Temperature Pulse Rate 74 72 70 Respiratory Rate 18 16 16 Blood Pressure 127/74 131/82 128/82 Pulse Oximetry 94 L 95 97 07/07/18 05:00 Temperature Pulse Rate 58 L Respiratory Rate 15 Blood Pressure 146/84 H Pulse Oximetry 99 Intake & Output 07/06/18 07/07/18 07/07/18 18:59 06:59 18:59 Weight 63.503 kg Narrative: Patient not noted to be in acute distress, no gross motor abnormalities but noted to have bruising of right forearm, no signs of tremor or EPS, no psychomotor agitation or retardation. - Constitutional no acute distress, cooperative Mental Status Examination Appearance: Dirty, Disheveled Consciousness: Alert Orientation: Person Motor Activity: Normal gait Speech: Pressured, Rapid Language: Adequate Fund of Knowledge: Inadequate Attention and Concentration: Inadequate Memory: Impaired Mood: Manic Affect: Labile Thought Process & Associations: Loose associations, Disorganized, Tangential, Other (Flight of ideas) Thought Content: Bizarre thinking, Racing thoughts Hallucination Type: None Delusion Type: None Suicidal Ideation: No Suicidal Plan: No Suicidal Intention: No Homicidal Ideation: No Homicidal Plan: No Homicidal Intention: No Insight: Poor Judgment: Poor Assessment and Plan - Assessment (1) Bipolar disorder, most recent episode manic Code(s): F31.10 - Bipolar disorder, current episode manic without psychotic features, unspecified Status: Acute - Plan Plan: Estimated LOS: [] days Patient is a 53 y/o man, , domiciled with , unemployed with unclear past psychiatric history, prior psychiatric admissions, no prior suicide attempts, with past medical history of DM, renal transplant, brought in by EMS with stating patient having manic episode which upon evaluation was noted to have disorganized thought process, flight of ideas, tangential, pressured speech, unable to engage effectively in interview secondary to current presentation. Patient will be admitted under involuntary admission as patient does not have capacity to consent of treatment. Patient's will serve as healthcare surrogate and guardian advocate for this admission. Patient to resume olanzapine 5mg PO BID, depakote 750mg BID, lorazepam 1mg every 6 hrs as needed for anxiety, trazodone 50mg PO HS as needed for insomnia. Consult placed for hospitalist to assist with medical management of chronic medical illnesses. Monitor mood and behavior. Discharge planning in progress. Justification for Continued Inpatient Stay: At risk for further decompensation at lower level of care.
[2018-07-07] MEDS ORDERED: Dextrose 50% in Water 50 ML Vial IV.PUSH PRN (14:12)
--- NOTE | 2018-07-07 14:13 | P.CON ---
History of Present Illness Service: Hospitalist Consult date: 07/07/18 Requesting Physician: Jonathan Ronquillo Reason for Consult: Medical management. Primary Care Provider: UNKNOWN Chief Complaint: manic episode History of Present Illness: Mr. Steel is a pleasant 53-year-old male with a history of diabetes mellitus, renal transplant who presents to the emergency department on 2017 due to manic episodes with racing thoughts and auditory hallucinations. Patient was subsequently admitted to psychiatric unit. Due to his history of renal transplant and diabetes mellitus, hospital service was consulted for medical management. At the time of this interview, patient is resting in bed. He has very tangential thoughts. However, he denies any chest pain, shortness of breath, fever or chills. Denies any changes in bowel or bladder habits. Past medical history: ESRD status post renal transplant in 1996 and 2017, hypertension, diabetes mellitus Past surgical history: Renal transplant in 1996 and 2017. Social history: Patient denies using tobacco or illicit drugs or alcohol. Family history: Grandmother had dementia. Review of Systems All other systems reviewed negative except as [facility] - History History Provided By: Patient, Family Member - Tobacco History Smoking Status: Former smoker - Alcohol History How Often Do You Have a Drink Containing Alcohol: Unable to Obtain - Substance Use History Substance History: No History of Abuse - Travel History Recent Travel in the [place] Within the Last 8 Weeks: No Recent Travel Out of the Country Within the Last 8 Weeks: No - Immunization History Tetanus Immunization: Unsure Medications and Allergies Active Medications: Active Medications Acetaminophen (Tylenol) 650 mg PO Q4H PRN PRN Reason: Pain 1-5 or Temp >101F Al Hydrox/Mg Hydrox/Simethicone (Mag-Al Plus Susp Liq) 30 ml PO Q6H PRN PRN Reason: DYSPEPSIA Al Hydroxide/Mg Hydroxide (Milk Of Magnesia Liq) 30 ml PO Q12H PRN PRN Reason: Mild Constipation Aspirin (Ecotrin) 81 mg PO DAILY EULALIA Bisacodyl (Dulcolax Supp) 10 mg RECTAL DAILY PRN PRN Reason: SEVERE CONSITIPATION Dextrose (D50w Vial) 50 ml IV.PUSH UNSCH PRN PRN Reason: PER HYPOGLYCEMIA PROTOCOL Divalproex Sodium (Depakote Er) 750 mg PO BID EULALIA Glucagon (Glucagon Inj) 1 mg OTHER PRN PRN PRN Reason: for Hypoglycemia Protocol Hydralazine HCl (Apresoline) 50 mg PO TID [facility] Insulin Aspart (Novolog Insulin Correctional Sugar Inj) 0 unit SQ ACHS EULALIA; Protocol Insulin Detemir (Levemir Inj) 7 unit SQ HS EULALIA Lactulose (Lactulose Liq) 30 ml PO DAILY PRN PRN Reason: SEVERE CONSITIPATION Lorazepam (Ativan) 1 mg PO Q6H PRN PRN Reason: MODERATE TO SEVERE ANXIETY Nifedipine (Procardia Xl) 60 mg PO BID EULALIA Olanzapine (Zyprexa Inj) 10 mg IM Q12H PRN PRN Reason: SEVERE AGITATION Senna/Docusate Sodium (Wendi-Colace) 1 tab PO BID PRN PRN Reason: CONSTIPATION Sennosides (Senokot) 17.2 mg PO Q12H PRN PRN Reason: Moderate Constipation Trazodone HCl (Desyrel) 50 mg PO HS PRN PRN Reason: INSOMNIA Allergies Allergy/AdvReac Type Severity Reaction Status Date / Time diphenhydramine Allergy Mild Insomnia Verified 07/07/18 09:50 atorvastatin Allergy Unknown Hives Verified 07/07/18 09:50 clarithromycin Allergy Unknown Hives Verified 07/07/18 09:50 lisinopril AdvReac Unknown Myalgias Verified 07/07/18 09:50 Home Medications Medication Instructions Recorded Confirmed Type aspirin [Aspir-81] 81 mg PO DAILY 07/06/18 07/06/18 History carvedilol 37.5 mg PO BID 07/06/18 07/06/18 History divalproex [Depakote ER] 750 mg PO BID 07/06/18 07/07/18 History doxazosin 8 mg PO BID 07/06/18 07/07/18 History hydralazine 50 mg PO TID 07/06/18 07/06/18 History insulin glargine [Lantus U-100 6 units SUBCUT DAILY 07/06/18 07/06/18 History Insulin] mycophenolate sodium 720 mg PO BID 07/06/18 07/07/18 History nifedipine 60 mg PO BID 07/06/18 07/07/18 History olanzapine [Zyprexa] 5 mg PO BID 07/06/18 07/07/18 History prednisone 2.5 mg PO DAILY 07/06/18 07/06/18 History sulfamethoxazole-trimethoprim 1 tab PO DAILY 07/06/18 07/06/18 History [Bactrim] Calcium 600 + D(3) 4,800 mg PO DAILY 07/07/18 07/07/18 History belatacept See Label Instructions .ROUTE 07/07/18 07/07/18 History .COMPLEX Physical Exam Vital signs: Vital Signs 07/06/18 14:20 07/06/18 17:54 07/06/18 21:45 Temperature 98 F Pulse Rate 75 73 72 Respiratory Rate 20 20 20 Blood Pressure 127/70 147/93 H 177/111 H Pulse Oximetry 100 100 97 07/06/18 23:13 07/06/18 23:30 07/07/18 01:00 Temperature Pulse Rate 74 72 70 Respiratory Rate 18 16 16 Blood Pressure 127/74 131/82 128/82 Pulse Oximetry 94 L 95 97 07/07/18 05:00 07/07/18 10:05 Temperature Pulse Rate 58 L 78 Respiratory Rate 15 18 Blood Pressure 146/84 H 152/78 H Pulse Oximetry 99 Intake & Output 07/06/18 07/07/18 07/07/18 18:59 06:59 18:59 Weight 63.503 kg Narrative: GENERAL: This is a well-nourished, well-developed patient, in no apparent distress. Pleasant but tangential thoughts. SKIN: No rashes, ecchymoses or lesions. Warm and dry. HEAD: Atraumatic. Normocephalic. No temporal or scalp tenderness. EYES: Pupils equal round and reactive. No injection or drainage. ENT: Nose without bleeding, purulent drainage or septal hematoma. Airway patent. NECK: Trachea midline. No lymphadenopathy. Supple, nontender, no meningeal signs. CARDIOVASCULAR: Regular rate and rhythm without murmurs, gallops, or rubs. No JVD. RESPIRATORY: Clear to auscultation. Breath sounds equal bilaterally. No wheezes , rales, or rhonchi. GASTROINTESTINAL: Abdomen soft, non-tender, nondistended. No guarding. Surgical scar noted. MUSCULOSKELETAL: Extremities without clubbing, cyanosis, or edema. NEUROLOGICAL: Awake and alert. Cranial nerves II through XII intact. No focal neurological deficits. Normal speech. Results - Labs CBC & Chem 7: 07/06/18 14:52 07/06/18 14:52 Labs: Laboratory Results - last 24 hr 07/06/18 07/06/18 07/06/18 14:52 14:52 14:52 WBC 4.9 RBC 4.18 L Hgb 14.0 Hct 41.3 MCV 98.7 MCH 33.6 MCHC 34.0 RDW 14.4 Plt Count 139 L MPV 9.6 Neut % (Auto) 76.9 H Lymph % (Auto) 7.2 L [place] % (Auto) 10.9 H Eos % (Auto) 4.6 H Baso % (Auto) 0.4 Neut # (Auto) 3.8 Lymph # (Auto) 0.4 L [place] # (Auto) 0.5 Eos # (Auto) 0.2 Baso # (Auto) 0.0 WBC Differential . Differential Comment Auto diff final Sodium 135 L Potassium 4.5 Chloride 99 Carbon Dioxide 30.5 Anion Gap 6 BUN 12 Creatinine 0.93 Estimated GFR 84 L Random Glucose 243 H Calcium 9.4 Magnesium 2.0 Total Bilirubin 0.3 AST 19 ALT 22 Alkaline Phosphatase 119 H Ammonia Total Protein 7.0 Albumin 3.6 TSH 0.896 Urine Color Urine Clarity Urine pH Ur Specific Neeses Urine Protein Urine Glucose (UA) Urine Ketones Urine Occult Blood Urine Nitrate Urine Bilirubin Urine Urobilinogen Ur Leukocyte Esterase Urine WBC Amorphous Sediment Ur Microscopic Review Salicylates Less than 1.7 L Urine Opiates Screen Acetaminophen Less than 2.0 L Ur Barbiturates Screen Valproic Acid Ur Amphetamines Screen U Benzodiazepines Scrn Urine Cocaine Screen U Cannabinoids Screen Serum Alcohol 4 07/06/18 07/06/18 07/06/18 14:52 14:52 15:10 WBC RBC Hgb Hct MCV MCH MCHC RDW Plt Count MPV Neut % (Auto) Lymph % (Auto) [place] % (Auto) Eos % (Auto) Baso % (Auto) Neut # (Auto) Lymph # (Auto) [place] # (Auto) Eos # (Auto) Baso # (Auto) WBC Differential Differential Comment Sodium Potassium Chloride Carbon Dioxide Anion Gap BUN Creatinine Estimated GFR Random Glucose Calcium Magnesium Total Bilirubin AST ALT Alkaline Phosphatase Ammonia 36 H Total Protein Albumin TSH Urine Color Straw Urine Clarity Clear Urine pH 8.0 Ur Specific Neeses 1.009 Urine Protein Negative Urine Glucose (UA) 150 H Urine Ketones Negative Urine Occult Blood Negative Urine Nitrate Negative Urine Bilirubin Negative Urine Urobilinogen Less than 2 Ur Leukocyte Esterase Negative Urine WBC Less than 1 Amorphous Sediment Rare H Ur Microscopic Review Not Reportable Salicylates Urine Opiates Screen Neg Acetaminophen Ur Barbiturates Screen Neg Valproic Acid Ur Amphetamines Screen Neg U Benzodiazepines Scrn Neg Urine Cocaine Screen Neg U Cannabinoids Screen Neg Serum Alcohol 07/06/18 15:10 WBC RBC Hgb Hct MCV MCH MCHC RDW Plt Count MPV Neut % (Auto) Lymph % (Auto) [place] % (Auto) Eos % (Auto) Baso % (Auto) Neut # (Auto) Lymph # (Auto) [place] # (Auto) Eos # (Auto) Baso # (Auto) WBC Differential Differential Comment Sodium Potassium Chloride Carbon Dioxide Anion Gap BUN Creatinine Estimated GFR Random Glucose Calcium Magnesium Total Bilirubin AST ALT Alkaline Phosphatase Ammonia Total Protein Albumin TSH Urine Color Urine Clarity Urine pH Ur Specific Neeses Urine Protein Urine Glucose (UA) Urine Ketones Urine Occult Blood Urine Nitrate Urine Bilirubin Urine Urobilinogen Ur Leukocyte Esterase Urine WBC Amorphous Sediment Ur Microscopic Review Salicylates Urine Opiates Screen Acetaminophen Ur Barbiturates Screen Valproic Acid 77 Ur Amphetamines Screen U Benzodiazepines Scrn Urine Cocaine Screen U Cannabinoids Screen Serum Alcohol - Imaging Impressions Head CT 07/06/18 15:38 CONCLUSION: 1. 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 2. Periventricular areas of decreased attenuation bilaterally which are most severe involving the left posterior parietal white matter consistent with ischemic changes and/or possible encephalomalacia of the posterior parietal lobe. 3. Mild cerebral atrophy. 4. No acute hemorrhage, midline shift or extra-axial fluid collections. . Chest X-Ray 07/06/18 15:40 CONCLUSION: No acute cardiopulmonary process. Assessment and Plan - Plan Mr. 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 Hospitalist service was consulted for medical management. Medicare episodehas been per psychiatric team. History of ESRD Status post renal transplant in 1996 and 2018 Creatinine 0.93. Continue mycophenolate sodium 720 mg p.o. twice daily No acute renal issues. Diabetes mellitus We will start patient on Levemir 7 units nightly and continue sliding scale insulin. Blood glucose 243 on admission. Goal blood glucose 140-180 during hospitalization. Continue aspirin 81 mg daily. Hypertension Continue nifedipine 60 mg p.o. twice daily, hydralazine 50 mg p.o. 3 times daily. Full code. Ambulation. Thank you for the consult. We will continue to follow this patient with you.
[2018-07-07] MEDS: Insulin NovoLOG Aspart Correctional Sugar Inj SQ SCH ×2 (17:29→20:19)
[2018-07-07] MEDS: hydrALAZINE 50 MG Tablet PO SCH (17:34)
[2018-07-07] MEDS: Mycophenolate Sodium 360 MG DR Tablet PO SCH (21:07)
[2018-07-07] MEDS: Insulin Detemir Inj 1,000 UNIT/10 ML Vial SQ SCH (21:07)
[2018-07-07] MEDS: Divalproex 250 MG ER Tablet PO SCH (21:07)
[2018-07-07] MEDS: LORazepam 1 MG Tablet PO PRN (21:08)
[2018-07-08] MEDS: Mycophenolate Sodium 360 MG DR Tablet PO SCH ×2 (09:15→20:35)
[2018-07-08] MEDS: hydrALAZINE 50 MG Tablet PO SCH ×3 (09:15→18:52)
[2018-07-08] MEDS: Insulin NovoLOG Aspart Correctional Sugar Inj SQ SCH ×4 (09:16→20:36)
[2018-07-08] MEDS: Divalproex 250 MG ER Tablet PO SCH ×2 (09:16→20:36)
[2018-07-08 10:24] LABS: Baso % (Auto) 0.7 % (0.0-2.0); Eos # (Auto) 0.3 th/mm3 (0.0-0.4); Eos % (Auto) 4.7 % (0.0-4.0); Hemoglobin 14.4 gm/dL (13.0-17.0); Lymph # (Auto) 0.4 th/mm3 (1.0-4.8); Lymph % (Auto) 8.1 % (9.0-44.0); Mean Corpuscular HGB Conc 33.6 % (32.0-36.0); Mean Corpuscular Hemoglobin 33.4 pg (27.0-34.0); Mean Corpuscular Volume 99.6 fL (80.0-100.0); Mean Platelet Volume 9.3 fL (7.0-11.0); Mono # (Auto) 0.6 th/mm3 (0.0-0.9); Neut % (Auto) 74.5 % (16.0-70.0); Platelet Count 164 th/mm3 (150-450); Red Blood Count 4.32 mil/mm3 (4.50-5.90); Red Cell Distribution Width 14.3 % (11.6-17.2); White Blood Count 5.4 th/mm3 (4.0-11.0)
[2018-07-08 11:17] LABS: Chol/HDL Ratio 3.32 Ratio; Thyroid Stimulating Hormone 0.897 uIU/mL (0.358-3.740)
--- NOTE | 2018-07-08 13:04 | P.PN ---
Subjective Interval history: Follow up on patient with DM, hx of renal transplant. Patient seen and examined. Patient continues to have significantly tangential thought process. He does not voice any acute medical complaints or concerns. DW nursing staff, no adverse events overnight. Physical Exam Vital signs: Vital Signs 07/07/18 18:45 07/08/18 06:00 Temperature 98.6 F 98.1 F Pulse Rate 76 79 Respiratory Rate 15 20 Blood Pressure 163/88 H Pulse Oximetry 98 Intake & Output 07/07/18 07/08/18 07/08/18 18:59 06:59 18:59 Intake Total 480 / 480 480 / 480 Balance 480 / 480 480 / 480 Intake: Oral 480 / 480 480 / 480 Other: # Voids 5 Narrative: GENERAL: Thin well developed male patient, INAD. Awake and alert. SKIN: Warm and dry. HEAD: Atraumatic. Normocephalic. EYES: Pupils equal and round. No scleral icterus. No injection or drainage. ENT: No nasal bleeding or discharge. Mucous membranes pink and moist. NECK: Trachea midline. CARDIOVASCULAR: Regular rate and rhythm. RESPIRATORY: No accessory muscle use. Clear to auscultation. Breath sounds equal bilaterally. GASTROINTESTINAL: Abdomen soft, non-tender, nondistended. +well healed surgical scar. MUSCULOSKELETAL: Extremities without clubbing, cyanosis, or edema. No obvious deformities. NEUROLOGICAL: Awake and alert. No obvious cranial nerve deficits. Motor grossly within normal limits. Able to move all extremities spontaneously. Normal speech. PSYCHIATRIC: Tangential thought process. Results - Labs CBC & Chem 7: 07/08/18 09:48 07/06/18 14:52 Laboratory Results - last 24 hr 07/07/18 07/07/18 07/08/18 16:54 20:17 06:09 WBC RBC Hgb Hct MCV MCH MCHC RDW Plt Count MPV Neut % (Auto) Lymph % (Auto) [place] % (Auto) Eos % (Auto) Baso % (Auto) Neut # (Auto) Lymph # (Auto) [place] # (Auto) Eos # (Auto) Baso # (Auto) WBC Differential Differential Comment POC Glucose 165 H 142 H 151 H Triglycerides Cholesterol LDL Cholesterol, Calc HDL Cholesterol Cholesterol/HDL Ratio TSH Valproic Acid 07/08/18 07/08/18 07/08/18 09:48 09:48 11:38 WBC 5.4 RBC 4.32 L Hgb 14.4 Hct 43.0 MCV 99.6 MCH 33.4 MCHC 33.6 RDW 14.3 Plt Count 164 MPV 9.3 Neut % (Auto) 74.5 H Lymph % (Auto) 8.1 L [place] % (Auto) 12.0 H Eos % (Auto) 4.7 H Baso % (Auto) 0.7 Neut # (Auto) 4.0 Lymph # (Auto) 0.4 L [place] # (Auto) 0.6 Eos # (Auto) 0.3 Baso # (Auto) 0.0 WBC Differential . Differential Comment Auto diff final POC Glucose 156 H Triglycerides 112 Cholesterol 166 LDL Cholesterol, Calc 94 HDL Cholesterol 50.0 Cholesterol/HDL Ratio 3.32 TSH 0.897 Valproic Acid 61 Assessment and Plan - Plan Mr. 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 Hospitalist service was consulted for medical management. Manic episode -management per psychiatric team History of ESRD Status post renal transplant in 1996 and 2017 Creatinine 0.93. Continue mycophenolate sodium 720 mg p.o. twice daily No acute renal issues. Diabetes mellitus BS running mid 100s started on Levemir 7 units nightly, continue -continue accucheks and coverage with sliding scale insulin. Blood glucose 243 on admission. Goal blood glucose 140-180 during hospitalization. Continue aspirin 81 mg daily. Hypertension Continue nifedipine 60 mg p.o. twice daily, hydralazine 50 mg p.o. 3 times daily. -12/2 BP elevated. Begin Coreg 3.125mg BID (Coreg listed on home med rec with dose of 37.5mg BID??) -continue to monitor BP and adjust treatment accordingly Full code. Ambulation. Code Status: Full Discussed Condition With: patient, nursing staff
--- NOTE | 2018-07-08 14:17 | P.PNPSY ---
Subjective Remarks: This is a request for second opinion. Admission note was reviewed and I agree with the history. Patient was seen and case was discussed with nursing. Patient is showing signs of acute betsey. He is hyper energetic, hyperverbal, pressured speech, racing thoughts, with some bizarre and grandiose delusions. He has had no agitation. He is compliant with his medications. He denies suicidal homicidal ideation intent or plan. Mental Status Examination Appearance: Dirty, Disheveled Consciousness: Alert Orientation: Person Motor Activity: Normal gait Speech: Pressured, Rapid Language: Adequate Fund of Knowledge: Inadequate Attention and Concentration: Inadequate Memory: Impaired Mood: Manic Affect: Labile Thought Process & Associations: Loose associations, Disorganized, Tangential, Other (Flight of ideas) Thought Content: Bizarre thinking, Racing thoughts Hallucination Type: None Delusion Type: None Suicidal Ideation: No Suicidal Plan: No Suicidal Intention: No Homicidal Ideation: No Homicidal Plan: No Homicidal Intention: No Insight: Poor Judgment: Poor Assessment and Plan - Assessment (1) Bipolar disorder, most recent episode manic Code(s): F31.10 - Bipolar disorder, current episode manic without psychotic features, unspecified Status: Acute - Plan Plan: I agree with the first opinion to continue petition. Criteria include acute betsey.We will get a Depakote level and set of LFTs tomorrow morning Justification for Continued Inpatient Stay: Patient would decompensate in a less restrictive setting
[2018-07-08 14:41] LABS: Hemoglobin A1c 6.8 % (4.3-6.0)
[2018-07-08] MEDS: Insulin Detemir Inj 1,000 UNIT/10 ML Vial SQ SCH (20:36)
[2018-07-08] MEDS: LORazepam 1 MG Tablet PO PRN (21:05)
[2018-07-08] MEDS: traZODone 50 MG Tablet PO PRN (23:42)
[2018-07-09 08:24] LABS: Albumin 3.9 g/dL (3.4-5.0)
[2018-07-09 08:25] LABS: Total Protein 7.2 g/dL (6.4-8.2)
[2018-07-09] MEDS: Insulin NovoLOG Aspart Correctional Sugar Inj SQ SCH ×4 (09:02→20:46)
[2018-07-09] MEDS: hydrALAZINE 50 MG Tablet PO SCH ×3 (09:04→18:13)
[2018-07-09] MEDS: Mycophenolate Sodium 360 MG DR Tablet PO SCH ×2 (09:05→20:46)
[2018-07-09] MEDS: Divalproex 250 MG ER Tablet PO SCH ×2 (09:05→20:46)
--- NOTE | 2018-07-09 10:35 | P.PN ---
Subjective Interval history: Follow up on patient with DM, hx of renal transplant. Patient seen and examined. Patient remains very confused. +Tangential thought process. Does not indicate that he has any acute medical complaints or concerns. Discussed with nursing staff, no adverse events noted overnight. Physical Exam Vital signs: Vital Signs 07/08/18 14:15 07/08/18 17:04 07/09/18 06:23 Temperature 97.9 F 97.6 F Pulse Rate 107 H 97 H 86 Respiratory Rate 20 17 Blood Pressure 130/86 143/74 H 112/67 Pulse Oximetry 98 96 Intake & Output 07/08/18 07/09/18 07/09/18 18:59 06:59 18:59 Intake Total 1200 / 1200 240 / 240 Balance 1200 / 1200 240 / 240 Intake: Oral 1200 / 1200 240 / 240 Other: # Voids 2 2 Narrative: GENERAL: Thin well developed male patient, INAD. Awake and alert. SKIN: Warm and dry. HEENT: Atraumatic. Normocephalic. Pupils equal and round. No scleral icterus. No injection or drainage. No nasal bleeding or discharge. Mucous membranes pink and moist. NECK: Trachea midline. CARDIOVASCULAR: Regular rate and rhythm. RESPIRATORY: No accessory muscle use. Clear to auscultation. Breath sounds equal bilaterally. GASTROINTESTINAL: Abdomen soft, non-tender, nondistended. +well healed surgical scar. MUSCULOSKELETAL: Extremities without clubbing, cyanosis, or edema. No obvious deformities. NEUROLOGICAL: Awake and alert. No obvious cranial nerve deficits. Motor grossly within normal limits. Able to move all extremities spontaneously. Pressured speech. PSYCHIATRIC: Tangential thought process. Results - Labs CBC & Chem 7: 07/08/18 09:48 07/06/18 14:52 Laboratory Results - last 24 hr 07/08/18 07/08/18 07/08/18 09:48 09:48 11:38 POC Glucose 156 H Hemoglobin A1c 6.8 H Total Bilirubin Direct Bilirubin Indirect Bilirubin AST ALT Alkaline Phosphatase Total Protein Albumin Triglycerides 112 Cholesterol 166 LDL Cholesterol, Calc 94 HDL Cholesterol 50.0 Cholesterol/HDL Ratio 3.32 TSH 0.897 Valproic Acid 61 07/08/18 07/08/18 07/09/18 16:31 22:01 07:23 POC Glucose 165 H 144 H Hemoglobin A1c Total Bilirubin 0.6 Direct Bilirubin 0.2 Indirect Bilirubin 0.4 AST 17 ALT 21 Alkaline Phosphatase 122 H Total Protein 7.2 Albumin 3.9 Triglycerides Cholesterol LDL Cholesterol, Calc HDL Cholesterol Cholesterol/HDL Ratio TSH Valproic Acid 90 07/09/18 09:02 POC Glucose 167 H Hemoglobin A1c Total Bilirubin Direct Bilirubin Indirect Bilirubin AST ALT Alkaline Phosphatase Total Protein Albumin Triglycerides Cholesterol LDL Cholesterol, Calc HDL Cholesterol Cholesterol/HDL Ratio TSH Valproic Acid Assessment and Plan - Plan Mr. 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 Hospitalist service was consulted for medical management. Manic episode -management per psychiatric team History of ESRD Status post renal transplant in 1996 and 2017 Creatinine 0.93. Continue mycophenolate sodium 720 mg p.o. twice daily No acute renal issues. -per RN, patients stating patient is due for his "infusion" soon, assuming it is his Belatacept listed in his med rec. Will consult Nephrology to assist with administration of this medication. Appreciate assistance. Diabetes mellitus BS running mid 100s started on Levemir 7 units nightly, continue -continue accucheks and coverage with sliding scale insulin. Blood glucose 243 on admission. Goal blood glucose 140-180 during hospitalization. Continue aspirin 81 mg daily. Hypertension Continue nifedipine 60 mg p.o. twice daily, hydralazine 50 mg p.o. 3 times daily. -12/2 BP elevated. Begin Coreg 3.125mg BID (Coreg listed on home med rec with dose of 37.5mg BID??) -continue to monitor BP and adjust treatment accordingly Full code. Ambulation. Code Status: Full Discussed Condition With: patient, nursing staff
--- NOTE | 2018-07-09 15:14 | P.PNPSY ---
Subjective Remarks: Patient seen for follow-up, chart reviewed. Discussion with nursing staff reported that patient continues with hyperverbal, nonsensical statements and pressured speech, patient slept 2-3 hours last evening and did not have dinner last night. Patient was found in day room ambulating at times was able to engage in interview and was noted to eat breakfast this morning. Patient states he is drinking "okay" continues to have some grandiose delusions of spending a lot of money plans on purchasing many things. He continues to be tangential with flight of ideas. Patient is able to answer questions concretely such as having his visited him over the weekend was unable to elaborate. He continues with some bizarre delusions, alert and oriented but he. Patient reports sleeping well last evening and contrary to nursing report. Review of Systems All other systems reviewed negative except as stated in HPI Mental Status Examination Appearance: Disheveled Consciousness: Alert Orientation: Person Motor Activity: Normal gait Speech: Pressured, Rapid Language: Adequate Fund of Knowledge: Inadequate Attention and Concentration: Inadequate Memory: Impaired Mood: Manic Affect: Labile Thought Process & Associations: Loose associations, Disorganized, Tangential, Other (Flight of ideas) Thought Content: Bizarre thinking, Racing thoughts Hallucination Type: None Delusion Type: None Suicidal Ideation: No Suicidal Plan: No Suicidal Intention: No Homicidal Ideation: No Homicidal Plan: No Homicidal Intention: No Insight: Poor Judgment: Poor Assessment and Plan - Assessment (1) Bipolar disorder, most recent episode manic Code(s): F31.10 - Bipolar disorder, current episode manic without psychotic features, unspecified Status: Acute - Plan Plan: Patient continued with disorganization, has a compliant with medications, had poor sleep less evening. We will attempt to increase trazodone to 100 mg p.o. at bedtime with possibility of switching to another hypnotic if ineffective such as temazepam. Medical team currently attempting to address patient's treatment plan regarding his recent renal transplant with [facility] where he had the procedure done. We will continue current treatment. We will continue to monitor mood and behavior. Discharge planning a progress. Justification for Continued Inpatient Stay: At risk of further decompensation at lower level care.
--- NOTE | 2018-07-09 19:14 | MB ---
cc: Kimberlyn Allen MD DATE: 07/09/2018 REASON FOR CONSULTATION: Post renal transplant, for management. HISTORY OF PRESENT ILLNESS: This is a 53-year-old male with a past medical history of diabetes mellitus, history of end-stage renal disease and was on peritoneal dialysis, history of renal transplant done twice. The first one was in 1996 and the second was in 2018. He was admitted in the psych unit because of confusion and hallucinations. I was called to see the patient for the management of transplant. The patient had his second renal transplant done in 2018 and he has been followed by his associate professor of sociology in [facility]. The patient has been on immunosuppression of Nulojix and also getting Myfortic. The patient denies any nausea or vomiting. He was eating his supper when I saw him. He has been confused and does not know exactly where he is. He does not know why he was brought in here. He has tangential thoughts, keeps on repeating things and starts talking about different things and not able to answer appropriately. Most of the history was taken from the patient's chart and some from the patient's nurse calling his renal transplant unit at [facility]. PAST MEDICAL HISTORY: Hypertension, diabetes mellitus, end-stage renal disease and was on peritoneal dialysis, post renal transplant. PAST SURGICAL HISTORY: PD catheter insertion and removal, history of renal transplant in 1996 in 2018. REVIEW OF SYSTEMS: Cannot be taken since the patient is not answering appropriately. SOCIAL HISTORY: He is . He has a past history of smoking. There is no history of heavy alcoholism. FAMILY HISTORY: Not available. ALLERGIES: HE IS ALLERGIC TO DIPHENHYDRAMINE, ATORVASTATIN, CLARITHROMYCIN, LISINOPRIL. MEDICATIONS: He is currently on the following medications: 1. Milk of magnesia. 2. Ecotrin 81 mg once a day. 3. Dulcolax p.r.n. 4. Carvedilol 3.125 mg b.i.d. 5. Depakote ER 750 mg b.i.d. 6. Apresoline 50 mg t.i.d. 7. Levemir 7 units subcutaneous at bedtime. 8. Lactulose 30 mL p.r.n. 9. Ativan p.r.n. 10. Myfortic 720 mg b.i.d. 11. Nifedipine 60 mg b.i.d. 12. Zyprexa 10 mg p.r.n. for agitation. 13. Wendi-Colace 1 tablet p.r.n. 14. Senokot p.r.n. PHYSICAL EXAMINATION: GENERAL: The patient is awake, alert, eating and confused. He is not oriented in time, place and person. VITAL SIGNS: His last blood pressure is 130/76, temperature 98.1, oxygen saturation 99% on room air. HEENT: Pupils are mid constricted. Nonicteric sclerae. Conjunctivae normal. NECK: Supple. JVD is not elevated. LUNGS: The patient has bilateral good air entry with no wheezing. CARDIOVASCULAR: S1, S2. Regular rhythm. ABDOMEN: Soft, lax. There is a scar of PD catheter and 2 scars on the right and left sides for renal transplants. There is no tenderness. EXTREMITIES: He has no pedal edema. INVESTIGATIONS: WBC count 5.5, hemoglobin 14.4, platelet count 164, neutrophils 74.5. Hemoglobin A1c 6.8. Triglycerides 112, cholesterol 166. Valproic acid 61. Urinalysis is showing protein negative. Toxicology screen is salicylate less than 1.7, acetaminophen 2.0. Serum alcohol level was 4 on admission. IMAGING STUDIES: The patient had a chest x-ray done on admission which shows no acute cardiopulmonary disease. A CT scan of the brain was also done which shows old left thalamic infarct, periventricular area of decreased attenuation, mild cerebral atrophy, no acute hemorrhage. ASSESSMENT: 1. Post renal transplant. 2. Hypertension. 3. Confusion and agitation with hallucinations. 4. Diabetes mellitus. PLAN: The patient has been seen by psych and he has been diagnosed with bipolar disorder. The patient had a normal creatinine of 0.93 on admission. He has been on Myfortic and Nulojix and I will continue that. Nulojix has to be given every 4 weeks and he is due on 07/11/2018. I wrote the orders and will discuss with the pharmacy if needed about the dosage. He is taking 5 mg/kg. Follow the urine output and the BMP. Avoid any nephrotoxins. Keep him hydrated well. Thank you for the consultation. I will follow the patient while he is in the hospital. MD NELSY Solares/ino , 05:10 PM , 05:22 PM
--- NOTE | 2018-07-09 19:57 | ECG ---
Date Performed: 07/08/2018 Time Performed: 12:07:59 PTAGE: 53 years EKG: SINUS TACHYCARDIA POSSIBLE LEFT ATRIAL ENLARGEMENT POSSIBLE RIGHT VENTRICULAR CONDUCTION DE LAY LEFT ANTERIOR FASCICULAR BLOCK LEFT VENTRICULAR HYPERTROPHY AND ST-T CHANGE ABNORMAL ECG NO PREVIOUS TRACING DOCTOR: Karen Michaels Interpretating Date/Time 07/09/2018 19:54:08
[2018-07-09] MEDS: Insulin Detemir Inj 1,000 UNIT/10 ML Vial SQ SCH (20:46)
[2018-07-09] MEDS: traZODone 50 MG Tablet PO PRN (23:55)
[2018-07-10] MEDS: LORazepam 1 MG Tablet PO PRN (01:14)
--- NOTE | 2018-07-10 07:54 | P.PNNP ---
Subjective Interval history: Patient is alert, remain confused, not answering appropriately, not in distress. Physical Exam Vital signs: Vital Signs 07/09/18 16:07 07/10/18 06:27 Temperature 98.1 F 97.5 F L Pulse Rate 74 85 Respiratory Rate 20 16 Blood Pressure 130/76 119/66 Pulse Oximetry 99 98 Intake & Output 07/09/18 07/10/18 07/10/18 18:59 06:59 18:59 Intake Total 840 / 840 1320 / 1320 Balance 840 / 840 1320 / 1320 Intake: Oral 840 / 840 1320 / 1320 Other: # Voids 2 2 Narrative: GENERAL: Thin well developed male patient, INAD. Awake and alert. SKIN: Warm and dry. HEENT: Atraumatic. Normocephalic. Pupils equal and round. No scleral icterus. No injection or drainage. No nasal bleeding or discharge. Mucous membranes pink and moist. NECK: Trachea midline. CARDIOVASCULAR: Regular rate and rhythm. RESPIRATORY: No accessory muscle use. Clear to auscultation. Breath sounds equal bilaterally. GASTROINTESTINAL: Abdomen soft, non-tender, nondistended. +well healed surgical scar. MUSCULOSKELETAL: Extremities without clubbing, cyanosis, or edema. No obvious deformities. NEUROLOGICAL: Awake and alert. No obvious cranial nerve deficits. Motor grossly within normal limits. Able to move all extremities spontaneously. Pressured speech. PSYCHIATRIC: Tangential thought process. Assessment and Plan - Assessment (1) Kidney transplant recipient Code(s): Z94.0 - Kidney transplant status Status: Acute (2) Bipolar affect, depressed Code(s): F31.30 - Bipolar disorder, current episode depressed, mild or moderate severity, unspecified Status: Acute Qualifiers: Current episode severity: moderate Qualified Code(s): F31.32 - Bipolar disorder, current episode depressed, moderate (3) Diabetes mellitus Code(s): E11.9 - Type 2 diabetes mellitus without complications Status: Acute (4) Hypertension Code(s): I10 - Essential (primary) hypertension Status: Acute - Plan Patient with post kidney transplant, Hypertension, Diabetes mellitus and Bipolar disorder. Now admitted in Psych. Last Creatinine was normal, will check in AM. He is on Myfortic and Nulojix for immunosuppression. The next dose of Nulojix is tomorrow, pharmacy trying to get it. Follow the BMP in AM. Encourage oral fluids.
--- NOTE | 2018-07-10 08:21 | P.PNPSY ---
Subjective Remarks: Patient seen for follow-up, chart reviewed. Discussion with nursing staff reported that patient poor sleep less evening, was given trazodone but with partial response. Patient has been compliant with medications. Patient was found sitting hospital bed eating breakfast stating that he is "feeling much better than yesterday". Patient states that he was upset yesterday with nursing staff and removed his IV line but states that he is willing to comply with treatment. Patient noted with flight of ideas still although he is alert and oriented x3. He states that he slept well last night can contrary to nursing report. Patient states he is having "difficulty focusing my mind" but states that is better today. Review of Systems All other systems reviewed negative except as stated in HPI Mental Status Examination Appearance: Disheveled Consciousness: Alert Orientation: Person Motor Activity: Normal gait Speech: Pressured, Rapid Language: Adequate Fund of Knowledge: Inadequate Attention and Concentration: Inadequate Memory: Impaired Mood: Manic Affect: Labile (Slightly less) Thought Process & Associations: Loose associations, Disorganized, Tangential, Other (Flight of ideas) Thought Content: Bizarre thinking, Racing thoughts Hallucination Type: None Delusion Type: None Suicidal Ideation: No Suicidal Plan: No Suicidal Intention: No Homicidal Ideation: No Homicidal Plan: No Homicidal Intention: No Insight: Poor Judgment: Poor Assessment and Plan - Assessment (1) Bipolar disorder, most recent episode manic Code(s): F31.10 - Bipolar disorder, current episode manic without psychotic features, unspecified Status: Acute - Plan Plan: Patient continues with pressured speech and flight of ideas but able to allow for him to injection during interview. Patient noted to be less disorganized although continues to have tangentiality. We will increase olanzapine to 5 mg a.m./10 mg at bedtime. We will discontinue trazodone as have been with limited response and will start temazepam 7.5mg HS for sleep disturbance. Continue rest of medications. Nephrology and hospitalist input appreciated. We will continue to monitor mood and behavior. Discharge planning a progress. Justification for Continued Inpatient Stay: At risk of further decompensation at lower level care.
[2018-07-10] MEDS: Insulin NovoLOG Aspart Correctional Sugar Inj SQ SCH ×3 (09:08→21:29)
[2018-07-10] MEDS: Mycophenolate Sodium 360 MG DR Tablet PO SCH ×2 (09:09→21:29)
[2018-07-10] MEDS: hydrALAZINE 50 MG Tablet PO SCH ×2 (09:09→13:50)
[2018-07-10] MEDS: Divalproex 250 MG ER Tablet PO SCH ×2 (09:10→21:29)
--- NOTE | 2018-07-10 10:10 | P.TTN ---
- Patient Problems Problems: 1. Discharge planning 2. Medication compliance 3. Knowledge deficit 4. Lack of coping skills - Progress Toward Goals Provider Present: Dr. Jewel Ronquillo Provider Input: 07/09/2018; doctor he will staff patient's overnight with RN, and make neccessary med adjustment if needed. Nurse(s) Present: RN Nurse Input: 07/09/2018: Per RN reports that patient is reporting poor sleep was given medication to assist with sleep. Patient refuses to come out of his room, with inappropriate behavior. Appears to be betsey, with an inability to focus or stay on topic. Psychiatric Counselors Present: Juliane Torres [facility] Psychiatric Therapist Input: 07/09/2018; patient will be returning home when stable, with outpatient follow-up with [facility]. Patient is a recent Kidney transplant recipient. Counselor will staff appropriate dc. Group Spec/RT/OT/ROMAN Present: Dhruv Bain OT Group Spec/RT/OT/ROMAN Input: 07/09/2018; patient is not appropriate for activities at this time. - Documentation Teaching Recipient: Patient
[2018-07-10 10:30] LABS: Calcium 8.9 mg/dL (8.5-10.1); Carbon Dioxide 31.6 meq/L (21.0-32.0); Potassium 4.2 meq/L (3.5-5.1)
--- NOTE | 2018-07-10 12:52 | P.PN ---
Subjective Interval history: Follow up on patient with DM, hx of renal transplant. Patient seen and examined. Patient is resting comfortably in bed. Discussed with nursing staff , no adverse events noted overnight. Nephrology following and ordered placed for patients infusion of Belatacept due tomorrow. Physical Exam Vital signs: Vital Signs 07/09/18 16:07 07/10/18 06:27 Temperature 98.1 F 97.5 F L Pulse Rate 74 85 Respiratory Rate 20 16 Blood Pressure 130/76 119/66 Pulse Oximetry 99 98 Intake & Output 07/09/18 07/10/18 07/10/18 18:59 06:59 18:59 Intake Total 840 / 840 1320 / 1320 Balance 840 / 840 1320 / 1320 Intake: Oral 840 / 840 1320 / 1320 Other: # Voids 2 2 Narrative: GENERAL: Thin well developed male patient, INAD. Resting comfortably in bed. SKIN: Warm and dry. HEENT: Atraumatic. Normocephalic. No nasal bleeding or discharge. Mucous membranes pink and moist. Airway patent. NECK: Trachea midline. CARDIOVASCULAR: Regular rate and rhythm. RESPIRATORY: No accessory muscle use. Clear to auscultation. Breath sounds equal bilaterally. GASTROINTESTINAL: Abdomen soft, non-tender, nondistended. +well healed surgical scar. MUSCULOSKELETAL: Extremities without clubbing, cyanosis, or edema. No obvious deformities. NEUROLOGICAL: No obvious cranial nerve deficits. Motor grossly within normal limits. Able to move all extremities spontaneously. Results - Labs CBC & Chem 7: 07/08/18 09:48 07/10/18 09:20 Laboratory Results - last 24 hr 07/09/18 07/09/18 07/10/18 17:05 19:31 09:07 Sodium Potassium Chloride Carbon Dioxide Anion Gap BUN Creatinine Estimated GFR POC Glucose 193 H 179 H 173 H Random Glucose Calcium 07/10/18 09:20 Sodium 137 Potassium 4.2 Chloride 100 Carbon Dioxide 31.6 Anion Gap 5 BUN 17 Creatinine 0.89 Estimated GFR 89 POC Glucose Random Glucose 184 H Calcium 8.9 Assessment and Plan - Plan Mr. 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 Hospitalist service was consulted for medical management. Manic episode Hx of bipolar disorder -management per psychiatric team History of ESRD Status post renal transplant in 1996 and 2017 Creatinine 0.93. 07/10 repeat Cr 0.89 -Continue mycophenolate sodium 720 mg p.o. twice daily -Avoid nephrotoxic agents -Nephrology following, appreciate assistance. Orders placed for Belatacept infusion for tomorrow. -monitor kidney function Diabetes mellitus BS adequately controlled started on Levemir 7 units nightly, continue -continue accucheks and coverage with sliding scale insulin. Blood glucose 243 on admission. Goal blood glucose 140-180 during hospitalization. Continue aspirin 81 mg daily. Hypertension, chronic Continue nifedipine 60 mg p.o. twice daily, hydralazine 50 mg p.o. 3 times daily. -07/08 BP elevated. Begin Coreg 3.125mg BID (Coreg listed on home med rec with dose of 37.5mg BID??) -continue to monitor BP and adjust treatment accordingly -07/10 BP controlled Full code. Ambulation. Code Status: Full Discussed Condition With: nursing staff
--- NOTE | 2018-07-10 13:37 | MG ---
cc: Sameer Hall MD, PhD TEST NUMBER: [id number] TECHNIQUE: A 17-channel EEG. DESCRIPTION: The background rhythm reveals symmetrical alpha activity. Frequency is 8 Hz. During drowsiness, there is slowing in the theta range. There are no lateralizing features identified. No epileptic features. The patient does appear asleep and there is delta slowing with sleep spindles present. Photic reveals a modest driving response. INTERPRETATION: Normal electroencephalogram in the awake and asleep states. Sameer Hall MD, PhD RADHA/ino , 01:24 PM , 01:28 PM
[2018-07-10] MEDS: predniSONE 5 MG Tablet PO SCH (16:10)
[2018-07-10] MEDS: Insulin Detemir Inj 1,000 UNIT/10 ML Vial SQ SCH (21:29)
[2018-07-10] MEDS: OLANZapine 10 MG Tablet PO SCH (21:30)
[2018-07-11] MEDS: Insulin NovoLOG Aspart Correctional Sugar Inj SQ SCH ×5 (07:23→21:34)
[2018-07-11] MEDS: hydrALAZINE 50 MG Tablet PO SCH ×4 (07:23→17:31)
--- NOTE | 2018-07-11 07:53 | P.PN ---
Subjective Interval history: Follow up on patient with DM, hx of renal transplant. Patient seen and examined. Complaining of sore throat and postnasal drip. He says he has allergies. He denies any pain or difficulty with swallowing. He reports mild cough without any sputum production. He denies any shortness of breath. Denies any chest pain. He denies any fever or chills. Physical Exam Vital signs: Vital Signs 07/10/18 18:16 07/10/18 19:00 07/11/18 06:39 Temperature 98.1 F 98.1 F Pulse Rate 65 60 60 Respiratory Rate 18 15 15 Blood Pressure 105/51 L 114/68 114/68 Pulse Oximetry 99 99 Intake & Output 07/10/18 07/11/18 07/11/18 18:59 06:59 18:59 Intake Total 360 / 360 2350 / 2350 Balance 360 / 360 2350 / 2350 Intake: Oral 360 / 360 2350 / 2350 Oral Supplement 0 / 0 Other: # Voids 3 Narrative: GENERAL: Thin well developed male patient, INAD. Awake and alert. Calm and pleasant. SKIN: Warm and dry. HEENT: Atraumatic. Normocephalic. No nasal bleeding or discharge. Mucous membranes pink and moist. Airway patent. No evidence of oral thrush. NECK: Trachea midline. CARDIOVASCULAR: Regular rate and rhythm. RESPIRATORY: No accessory muscle use. Clear to auscultation. Breath sounds equal bilaterally. GASTROINTESTINAL: Abdomen soft, non-tender, nondistended. +well healed surgical scar. MUSCULOSKELETAL: Extremities without clubbing, cyanosis, or edema. No obvious deformities. NEUROLOGICAL: No obvious cranial nerve deficits. Motor grossly within normal limits. Able to move all extremities spontaneously. PSYCHIATRIC: Calm and cooperative. Appears much less manic. Results - Labs CBC & Chem 7: 07/08/18 09:48 07/10/18 09:20 Laboratory Results - last 24 hr 07/10/18 07/10/18 07/10/18 09:07 09:20 12:46 Sodium 137 Potassium 4.2 Chloride 100 Carbon Dioxide 31.6 Anion Gap 5 BUN 17 Creatinine 0.89 Estimated GFR 89 POC Glucose 173 H 132 H Random Glucose 184 H Calcium 8.9 07/10/18 07/10/18 18:39 19:43 Sodium Potassium Chloride Carbon Dioxide Anion Gap BUN Creatinine Estimated GFR POC Glucose 130 H 206 H Random Glucose Calcium Assessment and Plan - Plan Mr. 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 Hospitalist service was consulted for medical management. Manic episode Hx of bipolar disorder EEG completed and normal -management per psychiatric team History of ESRD Status post renal transplant in 1996 and 2017 Creatinine 0.93. 07/10 repeat Cr 0.89 -Continue mycophenolate sodium 720 mg p.o. twice daily -Avoid nephrotoxic agents -Nephrology following, appreciate assistance. Orders placed for Belatacept infusion planned for today. -monitor kidney function -07/11 patient states he was not on low-dose prednisone prior to this admission. We will discontinue. Diabetes mellitus BS adequately controlled started on Levemir 7 units nightly, continue -continue accucheks and coverage with sliding scale insulin. Blood glucose 243 on admission. Goal blood glucose 140-180 during hospitalization. Continue aspirin 81 mg daily. Hypertension, chronic Continue nifedipine 60 mg p.o. twice daily, hydralazine 50 mg p.o. 3 times daily. -07/08 BP elevated. Begin Coreg 3.125mg BID (Coreg listed on home med rec with dose of 37.5mg BID??) -continue to monitor BP and adjust treatment accordingly -BP controlled Sore throat, suspect PND secondary to allergic rhinitis Patient denies any dysphagia or odynophagia -Mucinex BID -Claritin daily -monitor for improvement Full code. Ambulation. Code Status: Full Discussed Condition With: patient, nursing staff
[2018-07-11] MEDS ORDERED: SODIUM CHLOR 0.9% IV.SIG ONE ×2 (08:00→15:00)
[2018-07-11] MEDS ORDERED: BELATACEPT IV.SIG ONE ×2 (08:00→15:00)
[2018-07-11] MEDS: Mycophenolate Sodium 360 MG DR Tablet PO SCH ×2 (08:47→21:27)
[2018-07-11] MEDS: predniSONE 5 MG Tablet PO SCH (08:48)
[2018-07-11] MEDS: Divalproex 250 MG ER Tablet PO SCH ×2 (08:48→21:27)
--- NOTE | 2018-07-11 11:32 | P.PNNP ---
Subjective Interval history: Patient is alert, remain confused, not in distress. Physical Exam Vital signs: Vital Signs 07/10/18 18:16 07/10/18 19:00 07/11/18 06:39 Temperature 98.1 F 98.1 F Pulse Rate 65 60 60 Respiratory Rate 18 15 15 Blood Pressure 105/51 L 114/68 114/68 Pulse Oximetry 99 99 Intake & Output 07/10/18 07/11/18 07/11/18 18:59 06:59 18:59 Intake Total 360 / 360 2350 / 2350 Balance 360 / 360 2350 / 2350 Intake: Oral 360 / 360 2350 / 2350 Oral Supplement 0 / 0 Other: # Voids 3 Narrative: GENERAL: Thin well developed male patient, NAD. Awake and alert. Calm and pleasant. SKIN: Warm and dry. HEENT: Atraumatic. Normocephalic. No nasal bleeding or discharge. Mucous membranes pink and moist. Airway patent. No evidence of oral thrush. NECK: Trachea midline. CARDIOVASCULAR: Regular rate and rhythm. RESPIRATORY: No accessory muscle use. Clear to auscultation. Breath sounds equal bilaterally. GASTROINTESTINAL: Abdomen soft, non-tender, nondistended. +well healed surgical scar. MUSCULOSKELETAL: Extremities without clubbing, cyanosis, or edema. No obvious deformities. NEUROLOGICAL: No obvious cranial nerve deficits. Motor grossly within normal limits. Able to move all extremities spontaneously. PSYCHIATRIC: Calm and cooperative. Appears much less manic. Assessment and Plan - Assessment (1) Kidney transplant recipient Code(s): Z94.0 - Kidney transplant status Status: Acute (2) Bipolar affect, depressed Code(s): F31.30 - Bipolar disorder, current episode depressed, mild or moderate severity, unspecified Status: Acute Qualifiers: Current episode severity: moderate Qualified Code(s): F31.32 - Bipolar disorder, current episode depressed, moderate (3) Diabetes mellitus Code(s): E11.9 - Type 2 diabetes mellitus without complications Status: Acute (4) Hypertension Code(s): I10 - Essential (primary) hypertension Status: Acute - Plan Patient with post kidney transplant, Hypertension, Diabetes mellitus and Bipolar disorder. Now admitted in Psych. Last Creatinine was normal, will check in AM. He is on Myfortic and Nulojix for immunosuppression. The next dose of Nulojix is today. Creatinine was normal. Encourage oral fluids.
[2018-07-11] MEDS: guaiFENesin 600 MG ER Tablet PO SCH ×2 (12:39→21:28)
[2018-07-11] MEDS: Loratadine 10 MG Tablet PO SCH (12:39)
--- NOTE | 2018-07-11 13:08 | P.PNPSY ---
Subjective Remarks: Patient seen for follow-up, chart reviewed. Discussion with nursing staff reported that patient is sleeping better. Last evening with change in hypnotic. Patient continued with tangentiality. Patient was found sitting in hospital bed to list to have flight of the restroom when taking a shower but states that he is feeling "good" stating he was able to sleep more last evening. Patient continues with some perseveration on random topics but noted to be less pressured and slightly less disorganized but continues with flight of ideas. Executive Search Consultant spoke with patient's who stated that she had visited him last evening was able to carry "a more of a conversation" that in the past. She was updated on recent report from EEG which was negative for any pathologic or acute findings. Review of Systems All other systems reviewed negative except as stated in HPI Mental Status Examination Appearance: Appropriate Consciousness: Alert Orientation: Person Motor Activity: Normal gait Speech: Pressured, Rapid Language: Adequate Fund of Knowledge: Inadequate Attention and Concentration: Inadequate Memory: Impaired Mood: Manic (Lessening) Affect: Labile (Slightly less) Thought Process & Associations: Loose associations, Disorganized (Slightly less) , Tangential, Other (Flight of ideas) Thought Content: Bizarre thinking, Racing thoughts (Slightly less the) Hallucination Type: None Delusion Type: None Suicidal Ideation: No Suicidal Plan: No Suicidal Intention: No Homicidal Ideation: No Homicidal Plan: No Homicidal Intention: No Insight: Poor Judgment: Poor Assessment and Plan - Assessment (1) Bipolar disorder, most recent episode manic Code(s): F31.10 - Bipolar disorder, current episode manic without psychotic features, unspecified Status: Acute - Plan Plan: Patient continued to be noted to have pressured speech along with tangentiality and flight of ideas but noted to be able to engage slightly better with conversation with redirection. Sleep has improved with change in medication last evening. We will continue current treatment. With upward titration as needed. We will continue to monitor mood and behavior. Continue recommendations as per medical team. Discharge planning in progress. Justification for Continued Inpatient Stay: At risk of further decompensation at lower level care.
--- NOTE | 2018-07-11 14:56 | P.TTN ---
- Patient Problems Problems: 1. Discharge planning 2. Medication compliance 3. Knowledge deficit 4. Lack of coping skills - Progress Toward Goals Provider Present: Dr. Jewel Ronquillo (Patient recently had a renal transplant, patient needs to remain for further psychiatric stabilization.) Provider Input: 07/09/2018; doctor he will staff patient's overnight with RN, and make neccessary med adjustment if needed. Nurse(s) Present: RN Nurse Input: 07/09/2018: Per RN reports that patient is reporting poor sleep was given medication to assist with sleep. Patient refuses to come out of his room, with inappropriate behavior. Appears to be betsey, with an inability to focus or stay on topic. Psychiatric Counselors Present: Liam Layne Jr., [facility] (Counselor will meet with the patient to discuss a safe discharge plan.), Juliane Torres [facility] Psychiatric Therapist Input: 07/09/2018; patient will be returning home when stable, with outpatient follow-up with [facility]. Patient is a recent Kidney transplant recipient. Counselor will staff appropriate dc. Group Spec/RT/OT/ROMAN Present: Dhruv Bain OT, ABEL Menon (Patient attends select groups.) Group Spec/RT/OT/ROMAN Input: 07/09/2018; patient is not appropriate for activities at this time. - Documentation Teaching Recipient: Patient
[2018-07-11] MEDS: OLANZapine 10 MG Tablet PO SCH (21:28)
[2018-07-11] MEDS: Insulin Detemir Inj 1,000 UNIT/10 ML Vial SQ SCH (21:33)
[2018-07-12] MEDS: Insulin NovoLOG Aspart Correctional Sugar Inj SQ SCH ×4 (08:04→20:53)
[2018-07-12] MEDS: Loratadine 10 MG Tablet PO SCH (08:36)
[2018-07-12] MEDS: hydrALAZINE 50 MG Tablet PO SCH ×3 (08:36→17:07)
[2018-07-12] MEDS: Divalproex 250 MG ER Tablet PO SCH ×2 (08:37→20:53)
[2018-07-12] MEDS: Mycophenolate Sodium 360 MG DR Tablet PO SCH ×2 (08:38→20:53)
[2018-07-12] MEDS: guaiFENesin 600 MG ER Tablet PO SCH ×2 (08:38→20:53)
--- NOTE | 2018-07-12 10:22 | P.PNNP ---
Subjective Interval history: Patient is awake, remain disoriented, not in distress. Physical Exam Vital signs: Vital Signs 07/11/18 16:26 07/12/18 06:35 Temperature 98.4 F 98.2 F Pulse Rate 67 53 L Respiratory Rate 18 18 Blood Pressure 115/73 134/81 Pulse Oximetry 96 98 Intake & Output 07/11/18 07/12/18 07/12/18 18:59 06:59 18:59 Intake Total 1320 / 1320 240 / 240 Balance 1320 / 1320 240 / 240 Weight 57.3 kg Intake: Oral 1320 / 1320 240 / 240 Other: # Voids 2 4 Narrative: GENERAL: Thin well developed male patient, NAD. Awake and alert. Not fully oriented. SKIN: Warm and dry. HEENT: Atraumatic. Normocephalic. No nasal bleeding or discharge. Mucous membranes pink and moist. Airway patent. No evidence of oral thrush. NECK: Trachea midline. CARDIOVASCULAR: Regular rate and rhythm. RESPIRATORY: No accessory muscle use. Clear to auscultation. Breath sounds equal bilaterally. GASTROINTESTINAL: Abdomen soft, non-tender, nondistended. +well healed surgical scar. MUSCULOSKELETAL: Extremities without clubbing, cyanosis, or edema. No obvious deformities. NEUROLOGICAL: No obvious cranial nerve deficits. Motor grossly within normal limits. Able to move all extremities spontaneously. PSYCHIATRIC: Anxious and talkative, irrational thought process. Assessment and Plan - Assessment (1) Kidney transplant recipient Code(s): Z94.0 - Kidney transplant status Status: Acute (2) Bipolar affect, depressed Code(s): F31.30 - Bipolar disorder, current episode depressed, mild or moderate severity, unspecified Status: Acute Qualifiers: Current episode severity: moderate Qualified Code(s): F31.32 - Bipolar disorder, current episode depressed, moderate (3) Diabetes mellitus Code(s): E11.9 - Type 2 diabetes mellitus without complications Status: Acute (4) Hypertension Code(s): I10 - Essential (primary) hypertension Status: Acute - Plan Patient with post kidney transplant, Hypertension, Diabetes mellitus and Bipolar disorder. Now admitted in Psych. Last Creatinine was normal, will check in AM. He is on Myfortic and Nulojix for immunosuppression. Nulojix was given yesterday. Creatinine was normal. No new labs. Encourage oral fluids.
[2018-07-12] MEDS: LORazepam 1 MG Tablet PO PRN ×2 (10:51→20:53)
[2018-07-12] MEDS ORDERED: OLANZapine 10 MG Tablet PO SCH (10:52)
[2018-07-12] MEDS: Acetaminophen 325 MG Tablet PO PRN (12:15)
--- NOTE | 2018-07-12 12:34 | P.PNPSY ---
Subjective Remarks: Patient seen for follow-up, chart reviewed. Discussion with nursing staff reported that patient had betalecept yesterday, slept for six hours. Patient was found to be on the unit noted to be somewhat disorganized and focused on with attending court hearing today. Patient continues to be noted to have loosening associations tangential flight of ideas. Patient states he did not sleep yesterday just in contrary to nursing report. He states he has been attempting to give away his breakfast throughout the patient's. He reports I visited with a fight with his yesterday but did not elaborate. Patient reports his mood is "great". Patient presented to mental health court where patient was detained on a continuance for further stabilization. Review of Systems All other systems reviewed negative except as stated in HPI Mental Status Examination Appearance: Appropriate Consciousness: Alert Orientation: Person Motor Activity: Normal gait Speech: Pressured, Rapid Language: Adequate Fund of Knowledge: Inadequate Attention and Concentration: Inadequate Memory: Impaired Mood: Manic (Lessening) Affect: Labile (Slightly less) Thought Process & Associations: Loose associations, Disorganized (Slightly less) , Tangential, Other (Flight of ideas) Thought Content: Bizarre thinking, Racing thoughts (Slightly less the) Hallucination Type: None Delusion Type: None Suicidal Ideation: No Suicidal Plan: No Suicidal Intention: No Homicidal Ideation: No Homicidal Plan: No Homicidal Intention: No Insight: Poor Judgment: Poor Assessment and Plan - Assessment (1) Bipolar disorder, most recent episode manic Code(s): F31.10 - Bipolar disorder, current episode manic without psychotic features, unspecified Status: Acute - Plan Plan: Patient continues with manic symptoms with pressured speech flight of ideas or loosening associations tangential. We will increase olanzapine to 10 mg p.o. twice daily, continue rest of medications. Continue to monitor mood and behavior. Nephrology and hospitalist input appreciated. Discharge planning in progress. Justification for Continued Inpatient Stay: At risk of further decompensation at lower level care.
--- NOTE | 2018-07-12 16:50 | P.PN ---
Subjective Interval history: Follow up on patient with DM, hx of renal transplant. Patient seen and examined. Patient feels well. He appears calmer and has less pressured speech. Able to have a coherent conversation. He does not voice any acute medical complaints. Physical Exam Vital signs: Vital Signs 07/12/18 06:35 Temperature 98.2 F Pulse Rate 53 L Respiratory Rate 18 Blood Pressure 134/81 Pulse Oximetry 98 Intake & Output 07/11/18 07/12/18 07/12/18 18:59 06:59 18:59 Intake Total 1320 / 1320 240 / 240 480 / 480 Balance 1320 / 1320 240 / 240 480 / 480 Weight 57.3 kg Intake: Oral 1320 / 1320 240 / 240 480 / 480 Other: # Voids 2 4 Date of Last Bowel Movement 07/11/18 Narrative: GENERAL: Thin well developed male patient. Awake and alert. In no acute distress. SKIN: Warm and dry. HEENT: Atraumatic. Normocephalic. No nasal bleeding or discharge. Mucous membranes pink and moist. Airway patent. No evidence of oral thrush. NECK: Trachea midline. CARDIOVASCULAR: Regular rate and rhythm. RESPIRATORY: No accessory muscle use. Clear to auscultation. Breath sounds equal bilaterally. GASTROINTESTINAL: Abdomen soft, non-tender, nondistended. +well healed surgical scar. MUSCULOSKELETAL: Extremities without clubbing, cyanosis, or edema. No obvious deformities. NEUROLOGICAL: No obvious cranial nerve deficits. Motor grossly within normal limits. Able to move all extremities spontaneously. PSYCHIATRIC: Anxious. Judgement and insight poor. Results - Labs CBC & Chem 7: 07/08/18 09:48 07/10/18 09:20 Laboratory Results - last 24 hr 07/11/18 07/12/18 07/12/18 21:02 06:33 07:19 POC Glucose 199 H 62 L 176 H 07/12/18 07/12/18 11:42 16:40 POC Glucose 169 H 91 Assessment and Plan - Plan Mr. 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 Hospitalist service was consulted for medical management. Manic episode Hx of bipolar disorder EEG completed and normal -management per psychiatric team History of ESRD Status post renal transplant in 1996 and 2017 Creatinine 0.93. 07/10 repeat Cr 0.89 -Continue mycophenolate sodium 720 mg p.o. twice daily -Avoid nephrotoxic agents -Nephrology following, appreciate assistance. s/p Belatacept infusion yesterday. -monitor kidney function -07/11 patient states he was not on low-dose prednisone prior to this admission. We will discontinue. Diabetes mellitus BS running low at times, in the 60s decrease dose of Levemir to 5 units nightly -continue accucheks and coverage with sliding scale insulin. Blood glucose 243 on admission. Goal blood glucose 140-180 during hospitalization. Continue aspirin 81 mg daily. Hypertension, chronic Continue nifedipine 60 mg p.o. twice daily, hydralazine 50 mg p.o. 3 times daily. -07/08 BP elevated. Begin Coreg 3.125mg BID (Coreg listed on home med rec with dose of 37.5mg BID??) -continue to monitor BP and adjust treatment accordingly -BP controlled Sore throat, suspect PND secondary to allergic rhinitis Patient denies any dysphagia or odynophagia -Mucinex BID -Claritin daily -monitor for improvement Full code. Ambulation. Code Status: Full Discussed Condition With: patient, nursing staff
[2018-07-12] MEDS: Insulin Detemir Inj 1,000 UNIT/10 ML Vial SQ SCH (20:52)
[2018-07-12] MEDS: OLANZapine 10 MG Tablet PO SCH (20:53)
[2018-07-12] MEDS ORDERED: Insulin Detemir Inj 1,000 UNIT/10 ML Vial SQ SCH (21:00)
[2018-07-13] MEDS: Insulin NovoLOG Aspart Correctional Sugar Inj SQ SCH ×4 (07:15→20:45)
[2018-07-13] MEDS: Loratadine 10 MG Tablet PO SCH (08:34)
--- NOTE | 2018-07-13 08:41 | P.PNPSY ---
Subjective Remarks: Patient seen for follow-up, chart reviewed. Discussion with nursing staff reported that patient patient slept 1-2 hours last night, continues to be intrusive with bizarre behavior attempting to disconnect [employer] from power outlets but redirectable. Patient was found to ambulate on the unit B, cooperative. Patient said he slept poorly last night and that he typically sleeps about 4 hours every night. Patient reports good appetite, reports his mood is being "good" stating that he saw his last night although she had left out of town yesterday. Patient continues to have some disorganization, noted to have flight of ideas. Patient denies any perceptual disturbances. No episodes of agitation and redirectable. Patient recent valproic acid level was 90 mcg/mL (within therapeutic limits). Review of Systems All other systems reviewed negative except as stated in HPI Mental Status Examination Appearance: Appropriate Consciousness: Alert Orientation: Person Motor Activity: Normal gait Speech: Pressured, Rapid Language: Adequate Fund of Knowledge: Inadequate Attention and Concentration: Inadequate Memory: Impaired Mood: Manic (Lessening) Affect: Labile (Slightly less) Thought Process & Associations: Loose associations, Disorganized (Slightly less) , Tangential, Other (Flight of ideas) Thought Content: Bizarre thinking, Racing thoughts (Slightly less the) Hallucination Type: None Delusion Type: None Suicidal Ideation: No Suicidal Plan: No Suicidal Intention: No Homicidal Ideation: No Homicidal Plan: No Homicidal Intention: No Insight: Poor Judgment: Poor Assessment and Plan - Assessment (1) Bipolar disorder, most recent episode manic Code(s): F31.10 - Bipolar disorder, current episode manic without psychotic features, unspecified Status: Acute - Plan Plan: Patient this time continues with tangentiality, disorganization, flight of ideas and loosening of with pressured speech but appears to be slightly less today. We will increase temazepam to 30 mg p.o. at bedtime scheduled for insomnia. Patient recently had olanzapine increased and we will continue this current dose and continue rest of medications. We will continue to monitor mood and behavior. Discharge planning in progress. Justification for Continued Inpatient Stay: At risk of further decompensation at lower level care.
[2018-07-13] MEDS: hydrALAZINE 50 MG Tablet PO SCH ×3 (08:50→17:12)
[2018-07-13] MEDS: Divalproex 250 MG ER Tablet PO SCH ×2 (08:50→20:45)
[2018-07-13] MEDS: guaiFENesin 600 MG ER Tablet PO SCH ×2 (08:50→20:44)
[2018-07-13] MEDS: Mycophenolate Sodium 360 MG DR Tablet PO SCH ×2 (08:50→20:44)
[2018-07-13] MEDS: OLANZapine 10 MG Tablet PO SCH ×2 (08:50→20:44)
--- NOTE | 2018-07-13 10:21 | P.PNIM ---
Subjective Interval history: Patient seen and examined. Patient says he only sleeps about 6 hours every 2 to 3 days. He does not voice any acute medical complaints or concerns. He says he is urinating well. He denies any headache, dizziness, fever, chills, chest pain or shortness of breath. Denies any nausea, vomiting or abdominal pain. Able to have a conversation with patient although he does have flight of ideas and somewhat pressured speech. He is redirectable. Physical Exam Vital signs: Last Vital Signs Temp 97.3 F L 07/13/18 06:24 Pulse 87 07/13/18 06:24 Resp 16 07/13/18 06:24 BP 155/86 H 07/13/18 06:24 Pulse Ox 98 07/13/18 06:24 Intake & Output 07/11/18 07/12/18 07/13/18 07/14/18 06:59 06:59 06:59 06:59 Intake Total 2710 / 2710 1560 / 1560 1680 / 1680 Balance 2710 / 2710 1560 / 1560 1680 / 1680 Weight 57.3 kg Narrative: GENERAL: Thin well developed male patient, INAD. Awake and alert. SKIN: Warm and dry. HEENT: Atraumatic. Normocephalic. No nasal bleeding or discharge. Mucous membranes pink and moist. Airway patent. NECK: Trachea midline. CARDIOVASCULAR: Regular rate and rhythm. RESPIRATORY: No accessory muscle use. Clear to auscultation. Breath sounds equal bilaterally. GASTROINTESTINAL: Abdomen soft, non-tender, nondistended. +well healed surgical scar. MUSCULOSKELETAL: Extremities without clubbing, cyanosis, or edema. No obvious deformities. NEUROLOGICAL: No obvious cranial nerve deficits. Motor grossly within normal limits. Able to move all extremities spontaneously. Pressured speech. PSYCHIATRIC: Tangential thought process. Judgement and insight poor. Results Labs CBC & Chem 7: 07/08/18 09:48 07/10/18 09:20 Assessment and Plan Plan Mr. 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 Hospitalist service was consulted for medical management. Manic episode Hx of bipolar disorder EEG completed and normal -management per psychiatric team History of ESRD patient reports good UOP Status post renal transplant in 1996 and 2017 Creatinine 0.93. 12/4 repeat Cr 0.89 -Continue mycophenolate sodium 720 mg p.o. twice daily -Avoid nephrotoxic agents -Nephrology following, appreciate assistance. s/p Belatacept infusion 07/11. Next dose to be given in 4 weeks. -monitor kidney function as indicated Diabetes mellitus -BS again in low 60s this am. Hold night time dose of Levemir 5u and change to am dosing -continue accucheks and coverage with sliding scale insulin. Blood glucose 243 on admission. Goal blood glucose 140-180 during hospitalization. Continue aspirin 81 mg daily. Hypertension, chronic Continue nifedipine 60 mg p.o. twice daily, hydralazine 50 mg p.o. 3 times daily. -07/08 BP elevated. Begin Coreg 3.125mg BID (Coreg listed on home med rec with dose of 37.5mg BID??) -continue to monitor BP and adjust treatment accordingly -BP controlled overall. 07/13 BP elevated but per nursing patient has been up all night, more agitated and restless, only slept one hour. Sore throat, suspect PND secondary to allergic rhinitis Patient denies any dysphagia or odynophagia -Mucinex BID -Claritin daily -monitor for improvement Full code. Ambulation. Progress Note: Quality VTE Deep Vein Thrombosis/Pulmonary Embolism Present on Admission: No
[2018-07-13] MEDS: Acetaminophen 325 MG Tablet PO PRN (15:40)
[2018-07-13] MEDS: LORazepam 1 MG Tablet PO PRN (16:47)
--- NOTE | 2018-07-13 17:09 | P.PNNP ---
Subjective Interval history: Patient is awake, remain confused, not in distress. Physical Exam Vital signs: Vital Signs 07/12/18 17:29 07/13/18 06:24 07/13/18 12:34 Temperature 97.9 F 97.3 F L Pulse Rate 84 87 83 Respiratory Rate 18 16 Blood Pressure 162/87 H 155/86 H 157/91 H Pulse Oximetry 97 98 07/13/18 16:55 Temperature 98.3 F Pulse Rate 88 Respiratory Rate 20 Blood Pressure 127/72 Pulse Oximetry 98 Intake & Output 07/12/18 07/13/18 07/13/18 18:59 06:59 18:59 Intake Total 960 / 960 720 / 720 1610 / 1610 Balance 960 / 960 720 / 720 1610 / 1610 Intake: Oral 960 / 960 720 / 720 1610 / 1610 Other: # Voids 1 2 Date of Last Bowel Movement 07/11/18 # Bowel Movements 1 Narrative: GENERAL: Thin well developed male patient, INAD. Awake and alert. SKIN: Warm and dry. HEENT: Atraumatic. Normocephalic. No nasal bleeding or discharge. Mucous membranes pink and moist. Airway patent. NECK: Trachea midline. CARDIOVASCULAR: Regular rate and rhythm. RESPIRATORY: No accessory muscle use. Clear to auscultation. Breath sounds equal bilaterally. GASTROINTESTINAL: Abdomen soft, non-tender, nondistended. +well healed surgical scar. MUSCULOSKELETAL: Extremities without clubbing, cyanosis, or edema. No obvious deformities. NEUROLOGICAL: No obvious cranial nerve deficits. Motor grossly within normal limits. Able to move all extremities spontaneously. Pressured speech. PSYCHIATRIC: Tangential thought process. Judgement and insight poor. Assessment and Plan - Assessment (1) Kidney transplant recipient Code(s): Z94.0 - Kidney transplant status Status: Acute (2) Bipolar affect, depressed Code(s): F31.30 - Bipolar disorder, current episode depressed, mild or moderate severity, unspecified Status: Acute Qualifiers: Current episode severity: moderate Qualified Code(s): F31.32 - Bipolar disorder, current episode depressed, moderate (3) Diabetes mellitus Code(s): E11.9 - Type 2 diabetes mellitus without complications Status: Acute (4) Hypertension Code(s): I10 - Essential (primary) hypertension Status: Acute - Plan Patient with post kidney transplant, Hypertension, Diabetes mellitus and Bipolar disorder. Now admitted in Psych. Last Creatinine was normal, will check in AM. He is on Myfortic and Nulojix for immunosuppression. Nulojix was given yesterday. Creatinine was normal. Continue same immunosuppression. Encourage oral fluids.
[2018-07-13] MEDS: Temazepam 15 MG Capsule PO SCH (20:45)
[2018-07-14] MEDS: Insulin NovoLOG Aspart Correctional Sugar Inj SQ SCH ×4 (07:40→20:33)
--- NOTE | 2018-07-14 08:36 | P.PNPSY ---
Subjective Remarks: Patient seen in his room with nurse Christophe, chart reviewed, patient compliant medication. Patient continues to wander about the unit though is no significant behavior problems is redirectable. There is a mild grandiosity with them. He denies suicidality voices or visions. With me today he denies having a mental illness. For now continue treatment Review of Systems All other systems reviewed negative except as stated in HPI Mental Status Examination Appearance: Appropriate Consciousness: Alert Orientation: Person Motor Activity: Normal gait Speech: Pressured, Rapid Language: Adequate Fund of Knowledge: Inadequate Attention and Concentration: Inadequate Memory: Impaired Mood: Manic (Lessening) Affect: Labile (Slightly less) Thought Process & Associations: Loose associations, Disorganized (Slightly less) , Tangential, Other (Flight of ideas) Thought Content: Bizarre thinking, Racing thoughts (Slightly less the) Hallucination Type: None Delusion Type: None Suicidal Ideation: No Suicidal Plan: No Suicidal Intention: No Homicidal Ideation: No Homicidal Plan: No Homicidal Intention: No Insight: Poor Judgment: Poor Assessment and Plan - Assessment (1) Bipolar disorder, most recent episode manic Code(s): F31.10 - Bipolar disorder, current episode manic without psychotic features, unspecified Status: Acute - Plan Plan: Patient remains manic with somewhat pressured speech. There is a grandiosity with him and is also somewhat disorganized. He is compliant medication. For now continue treatment Justification for Continued Inpatient Stay: At this time patient with decompensated placed in a lower level of care Discharge Planning: To be determined
[2018-07-14] MEDS: Mycophenolate Sodium 360 MG DR Tablet PO SCH ×2 (08:40→20:32)
[2018-07-14] MEDS: Loratadine 10 MG Tablet PO SCH (08:40)
[2018-07-14] MEDS: guaiFENesin 600 MG ER Tablet PO SCH ×2 (08:41→20:33)
[2018-07-14] MEDS: Divalproex 250 MG ER Tablet PO SCH ×2 (08:41→20:32)
[2018-07-14] MEDS: hydrALAZINE 50 MG Tablet PO SCH ×3 (08:41→17:19)
[2018-07-14] MEDS: OLANZapine 10 MG Tablet PO SCH ×2 (08:41→20:32)
[2018-07-14] MEDS: Acetaminophen 325 MG Tablet PO PRN ×2 (13:23→20:31)
[2018-07-14] MEDS: LORazepam 1 MG Tablet PO PRN (13:24)
--- NOTE | 2018-07-14 13:55 | P.PNIM ---
Subjective Interval history: Follow-up on patient with end-stage renal disease status post renal transplant, diabetes, hypertension. Patient seen and examined. Patient states he slept okay last night. He is asking if he can be discharged so he can drive north and take his children to see snow. His thought process remains improved but still has loose associations and tangential. Discussed with nursing staff, no adverse events noted overnight. Physical Exam Vital signs: Last Vital Signs Temp 97.4 F L 07/14/18 06:47 Pulse 72 07/14/18 06:47 Resp 18 07/14/18 06:47 BP 128/84 07/14/18 06:47 Pulse Ox 99 07/14/18 06:47 Intake & Output 07/12/18 07/13/18 07/14/18 07/15/18 06:59 06:59 06:59 06:59 Intake Total 1560 / 1560 1680 / 1680 2089 1080 / 1080 Balance 1560 / 1560 1680 / 1680 2089 1080 / 1080 Weight 57.3 kg Narrative: GENERAL: Thin well developed male patient, INAD. Awake and alert. Appears comfortable sitting up in bed. SKIN: Warm and dry. HEENT: Atraumatic. Normocephalic. No nasal bleeding or discharge. Mucous membranes pink and moist. Airway patent. NECK: Trachea midline. CARDIOVASCULAR: Regular rate and rhythm. RESPIRATORY: No accessory muscle use. Clear to auscultation. Breath sounds equal bilaterally. GASTROINTESTINAL: Abdomen soft, non-tender, nondistended. +well healed surgical scar. MUSCULOSKELETAL: Extremities without clubbing, cyanosis, or edema. No obvious deformities. NEUROLOGICAL: No obvious cranial nerve deficits. Motor grossly within normal limits. Able to move all extremities spontaneously. Pressured speech. PSYCHIATRIC: Tangential thought process. Judgement and insight poor. Results Labs CBC & Chem 7: 07/08/18 09:48 07/10/18 09:20 Assessment and Plan Plan Mr. 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 Hospitalist service was consulted for medical management. Manic episode Hx of bipolar disorder EEG completed and normal -management per psychiatric team History of ESRD patient reports good UOP Status post renal transplant in 1996 and 2017 Creatinine 0.93. 07/10 repeat Cr 0.89 -Continue mycophenolate sodium 720 mg p.o. twice daily -Avoid nephrotoxic agents -Nephrology following, appreciate assistance. s/p Belatacept infusion 07/11. Next dose to be given in 4 weeks. -monitor kidney function as indicated Diabetes mellitus -BS again in low 60s this am. Hold night time dose of Levemir 5u and change to am dosing -continue accucheks and coverage with sliding scale insulin. Blood glucose 243 on admission. Goal blood glucose 140-180 during hospitalization. Continue aspirin 81 mg daily. Hypertension, chronic Continue nifedipine 60 mg p.o. twice daily, hydralazine 50 mg p.o. 3 times daily. -12 BP elevated. Begin Coreg 3.125mg BID (Coreg listed on home med rec with dose of 37.5mg BID??) -continue to monitor BP and adjust treatment accordingly -BP controlled overall. 07/13 BP elevated but per nursing patient has been up all night, more agitated and restless, only slept one hour. 07/14 BP improved. Sore throat, suspect PND secondary to allergic rhinitis, resolved Patient denies any dysphagia or odynophagia -Mucinex BID -Claritin daily -monitor for improvement Full code. Ambulation. Patient appears stable from hospitalist standpoint. [facility] will sign off. Please reconsult if needed. Progress Note: Quality VTE Deep Vein Thrombosis/Pulmonary Embolism Present on Admission: No
[2018-07-14] MEDS: Temazepam 15 MG Capsule PO SCH (20:33)
[2018-07-14] MEDS: Insulin Detemir Inj 1,000 UNIT/10 ML Vial SQ SCH (20:33)
[2018-07-15] MEDS: Insulin NovoLOG Aspart Correctional Sugar Inj SQ SCH ×4 (07:06→21:46)
[2018-07-15] MEDS: hydrALAZINE 50 MG Tablet PO SCH ×3 (09:12→17:44)
[2018-07-15] MEDS: Divalproex 250 MG ER Tablet PO SCH ×2 (09:12→21:18)
[2018-07-15] MEDS: OLANZapine 10 MG Tablet PO SCH ×2 (09:13→21:19)
[2018-07-15] MEDS: Loratadine 10 MG Tablet PO SCH (09:13)
[2018-07-15] MEDS: guaiFENesin 600 MG ER Tablet PO SCH ×2 (09:13→21:19)
[2018-07-15] MEDS: Acetaminophen 325 MG Tablet PO PRN ×2 (13:28→17:43)
--- NOTE | 2018-07-15 15:26 | P.PNPSY ---
Subjective Remarks: Pt seen and discussed with staff. Pt remains manic and tangential. staff electrical engineer report that pt has been intrusive and labile in mood. He is compliatn with medications and has not been aggressive. Racing thoughts persist but are improving. Pt reports decreased AH. is present and states that pt has a little less labile today, but remains disorganized in behaviors. No medication side effects. NO SI/HI Mental Status Examination Appearance: Appropriate Consciousness: Alert Orientation: Person Motor Activity: Normal gait Speech: Pressured, Rapid Language: Adequate Fund of Knowledge: Inadequate Attention and Concentration: Inadequate Memory: Impaired Mood: Manic Affect: Labile (moderate) Thought Process & Associations: Loose associations, Disorganized (improving), Other (Flight of ideas) Thought Content: Bizarre thinking, Racing thoughts (Slightly less the) Hallucination Type: None Delusion Type: None Suicidal Ideation: No Suicidal Plan: No Suicidal Intention: No Homicidal Ideation: No Homicidal Plan: No Homicidal Intention: No Insight: Poor Judgment: Poor Assessment and Plan - Assessment (1) Bipolar disorder, most recent episode manic Code(s): F31.10 - Bipolar disorder, current episode manic without psychotic features, unspecified Status: Acute - Plan Plan: Continue current tx plan. Justification for Continued Inpatient Stay: betsey
[2018-07-15] MEDS: LORazepam 1 MG Tablet PO PRN ×2 (17:50→22:26)
[2018-07-15] MEDS: Temazepam 15 MG Capsule PO SCH (21:18)
[2018-07-15] MEDS: Insulin Detemir Inj 1,000 UNIT/10 ML Vial SQ SCH (21:18)
[2018-07-16] MEDS: Insulin NovoLOG Aspart Correctional Sugar Inj SQ SCH ×4 (07:40→23:28)
[2018-07-16] MEDS: Loratadine 10 MG Tablet PO SCH (08:53)
[2018-07-16] MEDS: hydrALAZINE 50 MG Tablet PO SCH ×3 (08:53→17:13)
[2018-07-16] MEDS: Divalproex 250 MG ER Tablet PO SCH ×2 (08:53→21:00)
[2018-07-16] MEDS: guaiFENesin 600 MG ER Tablet PO SCH ×2 (08:53→21:00)
[2018-07-16] MEDS: OLANZapine 10 MG Tablet PO SCH (08:53)
--- NOTE | 2018-07-16 10:13 | P.TTN ---
- Patient Problems Problems: 1. Discharge planning 2. Medication compliance 3. Knowledge deficit 4. Lack of coping skills - Progress Toward Goals Provider Present: Dr. Jewel Ronquillo (Dr. Ronquillo is titrating medications Zyprexa, patient needs to remain for further stabilization.) Provider Input: 07/09/2018; doctor he will staff patient's overnight with RN, and make neccessary med adjustment if needed. Nurse(s) Present: RN Nurse Input: 07/09/2018: Per RN reports that patient is reporting poor sleep was given medication to assist with sleep. Patient refuses to come out of his room, with inappropriate behavior. Appears to be betsey, with an inability to focus or stay on topic. Psychiatric Counselors Present: Liam Layne Jr., [facility] (Counselor will return home to his when stable.), Juliane Torres [facility] Psychiatric Therapist Input: 07/09/2018; patient will be returning home when stable, with outpatient follow-up with [facility]. Patient is a recent Kidney transplant recipient. Counselor will staff appropriate dc. Group Spec/RT/OT/ROMAN Present: Dhruv Bain OT, ABEL Menon (Patient attends select groups at this time.) Group Spec/RT/OT/ROMAN Input: 07/09/2018; patient is not appropriate for activities at this time. - Documentation Teaching Recipient: Patient
[2018-07-16] MEDS: Acetaminophen 325 MG Tablet PO PRN ×2 (11:12→16:53)
--- NOTE | 2018-07-16 13:38 | P.PNPSY ---
Subjective Remarks: Patient seen for follow-up, chart reviewed. Discussion with nursing staff reported that patient less tangential, still wandering required redirection, still disorganized at times but improving. Patient was found walking on the unit was able to engage appropriately during interview. Noted to be less tangential less disorganized although at times would have some derailment during conversation. Patient also stating that he is sleeping well last evening although as per nursing report was having disrupted sleep. Patient denied any perceptual disturbances. Patient's that he is feeling better. Collateral information obtained by patient's stated that she felt that patient was doing much better since last Monday over the weekend and foresees patient getting close to baseline Review of Systems All other systems reviewed negative except as stated in HPI Mental Status Examination Appearance: Appropriate (Alcohol level is) Consciousness: Alert Orientation: Person Motor Activity: Normal gait Speech: Pressured, Rapid Language: Adequate Fund of Knowledge: Inadequate Attention and Concentration: Inadequate Memory: Impaired Mood: Manic Affect: Labile (minimal) Thought Process & Associations: Loose associations (minimal), Disorganized ( improving) Thought Content: Bizarre thinking, Racing thoughts (lessening) Hallucination Type: None Delusion Type: None Suicidal Ideation: No Suicidal Plan: No Suicidal Intention: No Homicidal Ideation: No Homicidal Plan: No Homicidal Intention: No Insight: Fair Judgment: Impulsive Assessment and Plan - Assessment (1) Bipolar disorder, most recent episode manic Code(s): F31.10 - Bipolar disorder, current episode manic without psychotic features, unspecified Status: Acute - Plan Plan: Patient is time noted to have less tangentiality disorganization but continued to be present. Patient's believes the patient is improving. We will continue to titrate Zyprexa to 10 g a.m./15 mg at bedtime for mood stabilization. Continue rest of medications. Continue to monitor mood and behavior. Discharge planning in progress. Justification for Continued Inpatient Stay: At risk of further decompensation at lower level care.
--- NOTE | 2018-07-16 14:00 | P.PNIM ---
Subjective Interval history: Reconsult for hypoglycemia. BS running low in the mornings - 59, 64. Patient complains of feeling sweaty with drop in BS. Given juice with improvement in blood sugar to 132. Physical Exam Vital signs: Last Vital Signs Temp 98.1 F 07/16/18 06:38 Pulse 92 H 07/16/18 12:30 Resp 17 07/16/18 07:00 BP 130/70 07/16/18 12:30 Pulse Ox 97 07/16/18 07:00 Intake & Output 07/14/18 07/15/18 07/16/18 07/17/18 06:59 06:59 06:59 06:59 Intake Total 2089 2520 / 2520 1080 / 1080 Balance 2089 1080 / 1080 Narrative: GENERAL: Thin well developed male patient, INAD. Awake and alert. SKIN: Warm and dry. No generalized rash. HEENT: Atraumatic. Normocephalic. No nasal bleeding or discharge. Mucous membranes pink and moist. Airway patent. NECK: Trachea midline. CARDIOVASCULAR: Regular rate and rhythm. RESPIRATORY: No accessory muscle use. Clear to auscultation. Breath sounds equal bilaterally. GASTROINTESTINAL: Abdomen soft, non-tender, nondistended. +well healed surgical scar. MUSCULOSKELETAL: Extremities without clubbing, cyanosis, or edema. No obvious deformities. NEUROLOGICAL: No obvious cranial nerve deficits. Motor grossly within normal limits. Able to move all extremities spontaneously. Pressured speech. PSYCHIATRIC: Tangential thought process. Judgement and insight poor. Results Labs CBC & Chem 7: 07/08/18 09:48 07/10/18 09:20 Assessment and Plan (1) Bipolar disorder, most recent episode manic: Code(s): F31.10 - Bipolar disorder, current episode manic without psychotic features, unspecified Status: Acute Plan Mr. 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 Hospitalist service was consulted for medical management. Manic episode Hx of bipolar disorder EEG completed and normal -management per psychiatric team History of ESRD patient reports good UOP Status post renal transplant in 1996 and 2017 Creatinine 0.93. 07/10 repeat Cr 0.89 -Continue mycophenolate sodium 720 mg p.o. twice daily -Avoid nephrotoxic agents -Nephrology following, appreciate assistance. s/p Belatacept infusion 07/11. Next dose to be given in 4 weeks. -monitor kidney function as indicated Diabetes mellitus -BS again in low 60s this am. Hold night time dose of Levemir 5u and change to am dosing -continue accucheks and coverage with sliding scale insulin. Blood glucose 243 on admission. Goal blood glucose 140-180 during hospitalization. Continue aspirin 81 mg daily. Hypertension, chronic Continue nifedipine 60 mg p.o. twice daily, hydralazine 50 mg p.o. 3 times daily and Coreg 3.125mg BID -BP controlled overall. Had some intermittent elevations in BP likely due to increased agitation -clonidine prn with parameters -continue to monitor BP and adjust treatment accordingly Full code. Ambulation. Progress Note: Quality VTE Deep Vein Thrombosis/Pulmonary Embolism Present on Admission: No
--- NOTE | 2018-07-16 18:04 | P.PNNP ---
Subjective Interval history: Patient remain alert, and not fully oriented. Physical Exam Vital signs: Vital Signs 07/16/18 06:38 07/16/18 07:00 07/16/18 12:30 Temperature 98.1 F Pulse Rate 89 89 92 H Respiratory Rate 17 17 Blood Pressure 146/89 H 143/89 H 130/70 Pulse Oximetry 95 97 07/16/18 17:15 Temperature 98.1 F Pulse Rate 96 H Respiratory Rate 18 Blood Pressure 152/89 H Pulse Oximetry 97 Intake & Output 07/15/18 07/16/18 07/16/18 18:59 06:59 18:59 Intake Total 1079 / 1079 Balance 1079 / 1079 Intake: Oral 1079 / 1079 Other: # Voids 3 1 Date of Last Bowel Movement 07/11/18 Narrative: GENERAL: Thin well developed male patient, INAD. Awake and alert. SKIN: Warm and dry. No generalized rash. HEENT: Atraumatic. Normocephalic. No nasal bleeding or discharge. Mucous membranes pink and moist. Airway patent. NECK: Trachea midline. CARDIOVASCULAR: Regular rate and rhythm. RESPIRATORY: No accessory muscle use. Clear to auscultation. Breath sounds equal bilaterally. GASTROINTESTINAL: Abdomen soft, non-tender, nondistended. +well healed surgical scar. MUSCULOSKELETAL: Extremities without clubbing, cyanosis, or edema. No obvious deformities. NEUROLOGICAL: No obvious cranial nerve deficits. Motor grossly within normal limits. Able to move all extremities spontaneously. Pressured speech. PSYCHIATRIC: Tangential thought process. Judgement and insight poor. Assessment and Plan - Assessment (1) Kidney transplant recipient Code(s): Z94.0 - Kidney transplant status Status: Acute (2) Bipolar affect, depressed Code(s): F31.30 - Bipolar disorder, current episode depressed, mild or moderate severity, unspecified Status: Acute Qualifiers: Current episode severity: moderate Qualified Code(s): F31.32 - Bipolar disorder, current episode depressed, moderate (3) Diabetes mellitus Code(s): E11.9 - Type 2 diabetes mellitus without complications Status: Acute (4) Hypertension Code(s): I10 - Essential (primary) hypertension Status: Acute - Plan Patient with post kidney transplant, Hypertension, Diabetes mellitus and Bipolar disorder. Now admitted in Psych. Last Creatinine was normal, will check in AM. He is on Myfortic and Nulojix for immunosuppression. Nulojix was given on 07/10, has to be given every 4 weeks. Continue same immunosuppression. Encourage oral fluids. BMP in AM.
[2018-07-16] MEDS: Temazepam 15 MG Capsule PO SCH (21:00)
[2018-07-16] MEDS: OLANZapine 15 MG Tablet PO SCH (23:29)
[2018-07-17] MEDS: LORazepam 1 MG Tablet PO PRN ×2 (01:13→21:06)
[2018-07-17] MEDS: Divalproex 250 MG ER Tablet PO SCH ×2 (08:10→21:05)
[2018-07-17] MEDS: OLANZapine 10 MG Tablet PO SCH (08:10)
[2018-07-17] MEDS: Loratadine 10 MG Tablet PO SCH (08:10)
[2018-07-17] MEDS: hydrALAZINE 50 MG Tablet PO SCH ×3 (08:10→18:06)
[2018-07-17] MEDS: Insulin NovoLOG Aspart Correctional Sugar Inj SQ SCH ×4 (08:11→21:48)
[2018-07-17] MEDS: guaiFENesin 600 MG ER Tablet PO SCH ×2 (08:11→21:06)
[2018-07-17] MEDS: Insulin Detemir Inj 1,000 UNIT/10 ML Vial SQ SCH (08:11)
[2018-07-17 09:07] LABS: Anion Gap 7 meq/L (5-15); Blood Urea Nitrogen 12 mg/dL (7-18); Calcium 9.6 mg/dL (8.5-10.1); Chloride 101 meq/L (98-107); Glomerular Filtration Rate Greater Than 89 mL/min (>89); Glucose,Random 108 mg/dL (74-106); Sodium 136 meq/L (136-145)
--- NOTE | 2018-07-17 10:24 | P.PN ---
Subjective Interval history: Follow up for hypoglycemia, BS running low in the mornings - 59, 64. Pt. seen and examined, blood sugar this morning 111. Indicates he slept poorly. Asking about his insulin here in the hospital, patient is eating well. Denies feeling shaky, sweaty. No acute changes overnight. States that he feels ready to go home. Physical Exam Vital signs: Vital Signs 07/16/18 12:30 07/16/18 17:15 07/16/18 19:00 Temperature 98.1 F 98.1 F Pulse Rate 92 H 96 H 96 H Respiratory Rate 18 18 Blood Pressure 130/70 152/89 H 152/89 H Pulse Oximetry 97 97 07/17/18 05:57 07/17/18 06:28 Temperature 99.2 F 99.2 F Pulse Rate 82 82 Respiratory Rate 15 15 Blood Pressure 121/78 121/78 Pulse Oximetry 95 95 Intake & Output 07/16/18 07/17/18 07/17/18 18:59 06:59 18:59 Intake Total 2040 / 2040 960 / 960 1440 / 1440 Balance 2039 / 2040 960 / 960 1440 / 1440 Intake: Oral 2039 / 0 960 / 960 1440 / 1440 Other: # Voids 1 3 Narrative: GENERAL: Thin well developed male patient, NAD SKIN: Warm and dry. No generalized rash. HEENT: Atraumatic. Normocephalic. No nasal bleeding or discharge. Mucous membranes pink and moist. Airway patent. NECK: Trachea midline. CARDIOVASCULAR: Regular rate and rhythm. RESPIRATORY: No accessory muscle use. Clear to auscultation. Breath sounds equal bilaterally. GASTROINTESTINAL: Abdomen soft, non-tender, nondistended. +well healed surgical scar. MUSCULOSKELETAL: Extremities without clubbing, cyanosis, or edema. No obvious deformities. NEUROLOGICAL: Awake, oriented x 3. no focal deficits. Pressured speech PSYCHIATRIC: Tangential thought process. Judgement and insight poor. Results - Labs CBC & Chem 7: 07/08/18 09:48 07/17/18 07:54 Laboratory Results - last 24 hr 07/16/18 07/16/18 07/16/18 11:11 15:54 20:11 Sodium Potassium Chloride Carbon Dioxide Anion Gap BUN Creatinine Estimated GFR POC Glucose 132 H 189 H 102 Random Glucose Calcium 12/1107/17/18 07/17/18 01:05 07:21 07:54 Sodium 136 Potassium 4.0 Chloride 101 Carbon Dioxide 28.0 Anion Gap 7 BUN 12 Creatinine 0.86 Estimated GFR Greater than 89 POC Glucose 155 H 111 H Random Glucose 108 H Calcium 9.6 Assessment and Plan - Assessment (1) Bipolar disorder, most recent episode manic Code(s): F31.10 - Bipolar disorder, current episode manic without psychotic features, unspecified Status: Acute - Plan Mr. 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 Hospitalist service was consulted for medical management. Manic episode Hx of bipolar disorder EEG completed and normal -management per psychiatric team History of ESRD patient reports good UOP Status post renal transplant in 1996 and 2017 Creatinine 0.93. 07/10 repeat Cr 0.89 -Continue mycophenolate sodium 720 mg p.o. twice daily -Avoid nephrotoxic agents -Nephrology following, appreciate assistance. s/p Belatacept infusion 07/11. Next dose to be given in 4 weeks. -monitor kidney function as indicated Diabetes mellitus Levemir at HS held. -blood sugar better this morning, 111. -Continue Levemir 5 units q am -continue accucheks and coverage with sliding scale insulin. Blood glucose 243 on admission. Goal blood glucose 140-180 during hospitalization. -will have RN give HS snack. Continue aspirin 81 mg daily. Hypertension, chronic Continue nifedipine 60 mg p.o. twice daily, hydralazine 50 mg p.o. 3 times daily and Coreg 3.125mg BID -BP controlled overall. Had some intermittent elevations in BP likely due to increased agitation -clonidine prn with parameters -continue to monitor BP and adjust treatment accordingly DVT prophylaxis-pt. ambulatory Code Status: Full code Discussed Condition With: RN, pt. Discharge Planning: per psych team
--- NOTE | 2018-07-17 15:50 | P.PNPSY ---
Subjective Remarks: Patient seen chart reviewed. Discussed with nursing staff. Talked to the patient's who feels he is close to baseline. He was able to engage in conversation about past and current complaints. Yesterday the patient was having some difficulty with derailment. No evidence of this today. His appetite seems good. He has no complaints about last night's sleep. Denies delusions or hallucinatory experiences. Review of Systems Neurologic: Reports unsteadiness Psychiatric: Reports anxiety Mental Status Examination Appearance: Appropriate (Alcohol level is) Consciousness: Alert Orientation: x4 Motor Activity: Normal gait Speech: Unremarkable Language: Adequate Fund of Knowledge: Inadequate Attention and Concentration: Inadequate Memory: Impaired Mood: Manic Affect: Labile (minimal) Thought Process & Associations: Loose associations (minimal), Disorganized ( improving) Thought Content: Bizarre thinking, Racing thoughts (lessening) Hallucination Type: None Delusion Type: None Suicidal Ideation: No Suicidal Plan: No Suicidal Intention: No Homicidal Ideation: No Homicidal Plan: No Homicidal Intention: No Insight: Fair Judgment: Impulsive Assessment and Plan - Plan Plan: Patient is close to baseline according to his . It will be for is Med/ psych psychiatrist and consultants to determine the patient's disposition tomorrow Justification for Continued Inpatient Stay: Patient has been much improved since yesterday but needs further inpatient evaluation and discharge planning.
[2018-07-17 18:22] VITALS: O2SAT 96
--- NOTE | 2018-07-17 18:42 | P.PNNP ---
Subjective Interval history: Patient is alert, now oriented times 2, not in distress. Physical Exam Vital signs: Vital Signs 07/16/18 19:00 07/17/18 05:57 07/17/18 06:28 Temperature 98.1 F 99.2 F 99.2 F Pulse Rate 96 H 82 82 Respiratory Rate 18 15 15 Blood Pressure 152/89 H 121/78 121/78 Pulse Oximetry 97 95 95 07/17/18 18:00 Temperature 97.8 F Pulse Rate 87 Respiratory Rate 18 Blood Pressure 130/74 Pulse Oximetry 96 Intake & Output 07/16/18 07/17/18 07/17/18 18:59 06:59 18:59 Intake Total 2039 960 / 960 2880 / 2880 Balance 2039 960 / 960 2880 / 2880 Intake: Oral 2039 960 / 960 2880 / 2880 Other: # Voids 1 3 Narrative: GENERAL: Thin well developed male patient, NAD SKIN: Warm and dry. No generalized rash. HEENT: Atraumatic. Normocephalic. No nasal bleeding or discharge. Mucous membranes pink and moist. Airway patent. NECK: Trachea midline. CARDIOVASCULAR: Regular rate and rhythm. RESPIRATORY: No accessory muscle use. Clear to auscultation. Breath sounds equal bilaterally. GASTROINTESTINAL: Abdomen soft, non-tender, nondistended. +well healed surgical scar. MUSCULOSKELETAL: Extremities without clubbing, cyanosis, or edema. No obvious deformities. NEUROLOGICAL: Awake, oriented x 2. no focal deficits. Pressured speech PSYCHIATRIC: Tangential thought process. Judgement and insight poor. Assessment and Plan - Assessment (1) Kidney transplant recipient Code(s): Z94.0 - Kidney transplant status Status: Acute (2) Bipolar affect, depressed Code(s): F31.30 - Bipolar disorder, current episode depressed, mild or moderate severity, unspecified Status: Acute Qualifiers: Current episode severity: moderate Qualified Code(s): F31.32 - Bipolar disorder, current episode depressed, moderate (3) Diabetes mellitus Code(s): E11.9 - Type 2 diabetes mellitus without complications Status: Acute (4) Hypertension Code(s): I10 - Essential (primary) hypertension Status: Acute - Plan Patient with post kidney transplant, Hypertension, Diabetes mellitus and Bipolar disorder. Now admitted in Psych. Last Creatinine was normal, will check in AM. He is on Myfortic and Nulojix for immunosuppression. Nulojix was given on 07/10, has to be given every 4 weeks. Continue same immunosuppression. Encourage oral fluids. Creatinine remain stable and normal. Encourage oral fluid intake.
[2018-07-17] MEDS: Temazepam 15 MG Capsule PO SCH (21:05)
[2018-07-17] MEDS: OLANZapine 15 MG Tablet PO SCH (21:06)
--- NOTE | 2018-07-18 02:55 | XR ---
EXAM DATE: 07/18/2018 2:32 AM EST AGE/SEX: 53 years / Male INDICATIONS: Pain. Patient fell and landed on his Right knee. CLINICAL DATA: This is the patient's initial encounter. Patient reports that signs and symptoms have been present for 1 day and indicates a pain score of Nonresponsive. MEDICAL/SURGICAL HISTORY: Non-responsive. Non-responsive. COMPARISON: No prior exams available for comparison. FINDINGS: 5 views of the right knee. Bone alignment within normal limits. No evidence of fracture. Chondrocalci nosis of the medial meniscus. No evidence of joint narrowing. Diffuse arterial calcification. No evid ence of joint effusion. CONCLUSION: No evidence of fracture. Electronically signed by: Raghav Uribe MD 07/18/2018 2:54 AM EST
[2018-07-18 05:51] VITALS: BP 135/83; PULSE 79; RESP 17; TEMP 97.6
[2018-07-18] MEDS: Insulin NovoLOG Aspart Correctional Sugar Inj SQ SCH ×2 (08:10→11:15)
[2018-07-18] MEDS: Divalproex 250 MG ER Tablet PO SCH (08:11)
[2018-07-18] MEDS: Insulin Detemir Inj 1,000 UNIT/10 ML Vial SQ SCH (08:12)
[2018-07-18] MEDS: Loratadine 10 MG Tablet PO SCH (08:12)
[2018-07-18] MEDS: guaiFENesin 600 MG ER Tablet PO SCH (08:12)
[2018-07-18] MEDS: OLANZapine 10 MG Tablet PO SCH (08:12)
[2018-07-18] MEDS: hydrALAZINE 50 MG Tablet PO SCH ×2 (08:12→13:04)
--- NOTE | 2018-07-18 08:44 | P.PN ---
Subjective Interval history: Follow up for hypoglycemia, BS running low in the mornings - 59, 64. Pt. seen and examined, blood sugar 90, ate snack last night. Pt. less disorganized today , conversing. Oriented x 3. Slept well. Had a fall overnight, states he pulled off blankets, they fell to floor and when he got up to bathroom he slipped. States he hit knee but is not painful, xray done showed no fracture. Did not hit head, neck. Has been ambulating around unit. Looking forward to seeing and family today. Has been voiding okay, approx. 600 to 800 per shift. Physical Exam Vital signs: Vital Signs 07/17/18 18:00 07/17/18 19:00 07/18/18 05:50 Temperature 97.8 F 97.8 F 97.6 F Pulse Rate 87 87 79 Respiratory Rate 18 18 17 Blood Pressure 130/74 130/74 135/83 Pulse Oximetry 96 96 Intake & Output 07/17/18 07/18/18 07/18/18 18:59 06:59 18:59 Intake Total 2880 / 2880 700 / 700 Output Total Balance 2880 / 2880 699 / 699 Intake: Oral 2880 / 2880 700 / 700 Output: Urine Other: # Voids 2 Narrative: GENERAL: Thin well developed male patient, NAD SKIN: Warm and dry. No generalized rash. HEENT: Atraumatic. Normocephalic. No nasal bleeding or discharge. Mucous membranes pink and moist. Airway patent. NECK: Trachea midline. CARDIOVASCULAR: Regular rate and rhythm. RESPIRATORY: No accessory muscle use. Clear to auscultation. Breath sounds equal bilaterally. GASTROINTESTINAL: Abdomen soft, non-tender, nondistended. +well healed surgical scar. MUSCULOSKELETAL: Extremities without clubbing, cyanosis, or edema. No obvious deformities. NEUROLOGICAL: Awake, oriented x 3. no focal deficits. PSYCHIATRIC: Appropriate, less disorganized. Results - Labs CBC & Chem 7: 07/08/18 09:48 07/17/18 07:54 Laboratory Results - last 24 hr 07/17/18 07/17/18 07/17/18 07:54 11:05 16:11 Sodium 136 Potassium 4.0 Chloride 101 Carbon Dioxide 28.0 Anion Gap 7 BUN 12 Creatinine 0.86 Estimated GFR Greater than 89 POC Glucose 151 H 169 H Random Glucose 108 H Calcium 9.6 07/17/18 07/18/18 20:40 07:17 Sodium Potassium Chloride Carbon Dioxide Anion Gap BUN Creatinine Estimated GFR POC Glucose 154 H 90 Random Glucose Calcium - Imaging Impressions Knee X-Ray 07/18/18 00:00 CONCLUSION: No evidence of fracture. Assessment and Plan - Assessment (1) Bipolar disorder, most recent episode manic Code(s): F31.10 - Bipolar disorder, current episode manic without psychotic features, unspecified Status: Acute - Plan Mr. 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 Hospitalist service was consulted for medical management. Manic episode Hx of bipolar disorder EEG completed and normal -management per psychiatric team History of ESRD patient reports good UOP Status post renal transplant in 1996 and 2017 Creatinine 0.93. 07/10 repeat Cr 0.89 -Continue mycophenolate sodium 720 mg p.o. twice daily -Avoid nephrotoxic agents -Nephrology following, appreciate assistance. s/p Belatacept infusion 07/11. Next dose to be given in 4 weeks. -renal fx stable Diabetes mellitus Levemir at HS held. -blood sugar this morning, 90 -Continue Levemir 5 units q am -continue accucheks and coverage with sliding scale insulin. Blood glucose 243 on admission. Goal blood glucose 140-180 during hospitalization. -will have RN give HS snack. Continue aspirin 81 mg daily. Hypertension, chronic Continue nifedipine 60 mg p.o. twice daily, hydralazine 50 mg p.o. 3 times daily and Coreg 3.125mg BID -BP controlled overall. Had some intermittent elevations in BP likely due to increased agitation -clonidine prn with parameters -continue to monitor BP and adjust treatment accordingly -BP well controlled DVT prophylaxis-pt. ambulatory Will sign off for now, reconsult if needed. Code Status: Full code Discussed Condition With: RN, pt, Dr. Ronquillo Discharge Planning: per psych team
--- NOTE | 2018-07-18 09:29 | P.TTN ---
- Patient Problems Problems: 1. Discharge planning 2. Medication compliance 3. Knowledge deficit 4. Lack of coping skills - Progress Toward Goals Provider Present: Dr. Jewel Ronquillo (Patient is approaching baseline, patient may meet criteria for discharge, Dr. Ronquillo will assess the patient for discharge sometime this morning.) Provider Input: 07/09/2018; doctor he will staff patient's overnight with RN, and make neccessary med adjustment if needed. Nurse(s) Present: RN Nurse Input: 07/09/2018: Per RN reports that patient is reporting poor sleep was given medication to assist with sleep. Patient refuses to come out of his room, with inappropriate behavior. Appears to be betsey, with an inability to focus or stay on topic. Psychiatric Counselors Present: Liam Layne Jr., [facility] (Patient will be discharged to his and will return to the [facility] where they reside.), Juliane Torres [facility] Psychiatric Therapist Input: 07/09/2018; patient will be returning home when stable, with outpatient follow-up with [facility]. Patient is a recent Kidney transplant recipient. Counselor will staff appropriate dc. Group Spec/RT/OT/ROMAN Present: MANI Kovacs (Patient does not attend groups at this time.), Dhruv Bain OT, ABEL Menon (Patient attends select groups at this time.) Group Spec/RT/OT/ROMAN Input: 07/09/2018; patient is not appropriate for activities at this time. - Documentation Teaching Recipient: Patient
--- NOTE | 2018-07-18 11:34 | P.DSPSY ---
Psychiatry Discharge Summary Inpatient Psychiatric care?: Yes Advance Directives: No Mental Health Advance Directive: No Health Care Proxy: No - Admission Admission Date: July 07, 2018 13:02 - Admission Diagnosis (1) Bipolar disorder, most recent episode manic Code(s): F31.10 - Bipolar disorder, current episode manic without psychotic features, unspecified Brief History: Patient is a 53 y/o man, , domiciled with , unemployed with unclear past psychiatric history, prior psychiatric admissions, no prior suicide attempts, with past medical history of DM, renal transplant, brought in by EMS with stating patient having manic episode which upon evaluation was noted to have disorganized thought process, flight of ideas, tangential, pressured speech, unable to engage effectively in interview secondary to current manic symptoms which patient was admitted to the inpatient psychiatry unit for further evaluation and management. Patient was found lying hospital bed with sitter at bedside seen with nurse, noted to be, cooperative. Patient was noted to have disorganization during interview unable to provide any adequate history noted to have flight of ideas and tangential along with pressured speech. Patient would make nonsensical statements and at times would have loosening associations. Patient also reported having decreased episodes of sleep, mentioning wanting to spend his money to give away during [place], admitting to having rapid thoughts, but denying any suicidal homicidal ideations , patient denies any auditory or visual hallucinations. Collateral formation obtained from patient's stated that patient recently had a kidney transplant in November in [place] and was on a immunosuppressant, tacrolimus and had presented with manic symptoms at that time which concern of betsey induced by this medication was considered and was discontinued. She states that a month ago patient started doing "crazy things" and since has been on a different medication via IV infusion called belatacept which she missed 1 week ago and is administered monthly. She mentions that patient had previous psychiatric admissions recently which patient was at a [place] psychiatric facility from June 25 and a subsequent admission at [facility] in [place] from June 29 and was discharged. She states that yesterday patient has had at least 2 days without sleep, presenting as described above and states that patient has been compliant with medications. She states she is attempting to contact the clinic regarding his IV infusion of belatacept which she is overdue for. She agrees to consent to be patient's healthcare surrogate and guardian advocate for this admission. Discussion of having patient resume Depakote and olanzapine was reviewed with patient's and benefits/risks/adverse drug reactions/alternatives was reviewed as well which she agreed. Past psychiatric history: Previous psychiatric diagnoses of bipolar disorder, prior psychiatric admissions as stated above, no previous suicide attempts Substance use history: Denies Past medical history: Diabetes, recent renal transplant in November ([place]). Allergies: Diphenhydramine, atorvastatin, clarithromycin, lisinopril Social history: , has 2 children, domiciled . Tobacco Use In Past 30 Days: No How Often Do You Have a Drink Containing Alcohol: Unable to Obtain Hospital Course: Patient is a 53 y/o man, , domiciled with , unemployed with unclear past psychiatric history, prior psychiatric admissions, no prior suicide attempts, with past medical history of DM, renal transplant, brought in by EMS with stating patient having manic episode which upon evaluation was noted to have disorganized thought process, flight of ideas, tangential, pressured speech, unable to engage effectively in interview secondary to current manic symptoms which patient was admitted to the inpatient psychiatry unit for further evaluation and management. Patient was admitted to a locked, inpatient psychiatric unit. Appropriate precautions were in place throughout patient's hospital stay. Patient was seen and examined on the unit by psychiatry. Psychotropic medications were adjusted. There was no evidence of any suicidality or homicidality on the inpatient unit. Patient's mood at this organization improved with the benefit of psychopharmacological treatment and had no behavioral disturbance since admission. Patient was noted to have reached stable mood, noted to participate and engage in treatment and interact with staff adequately. Patient noted to be future oriented with plans to continue treatment and outpatient follow-up appointments for continuity of care. Counselor has arranged discharge plan which patient return back to his residence along with his continue outpatient care.. On the day of discharge: Patient seen and examined; chart reviewed. Case discussed with nurse and counselor. No behavioral issues overnight. On my examination today, the patient denies any suicidal homicidal ideation, intent or plan on direct questioning and contracts for safety. Patient denies any perceptional disturbances and no delusional material verbalized today. Patient denies any side effects from medication and has understanding of medication regimen and education. No physical complaints. Suicide and violence risk assessment on day of discharge both suggest lower imminent risk, and the patient's level of function is adequate for plan level of outpatient care. Patient has maximized benefit from this inpatient psychiatric hospital stay and will be discharged with discharge plan as arranged by counselor. Patient advised to return to psychiatric emergency room for any concerning psychiatric symptoms. Patient agrees with plan. - Discharge Discharge Date: 07/18/18 - Discharge Diagnosis (1) Bipolar disorder, most recent episode manic Code(s): F31.10 - Bipolar disorder, current episode manic without psychotic features, unspecified Status: Acute Discharge Disposition: Home - Discharge Instructions Discharge Diet: Heart Healthy Diet Activities You Can Perform: Regular- No Restrictions - Discharge Time > 30 minutes Mental Status Examination Appearance: Appropriate (Alcohol level is) Consciousness: Alert Orientation: x4 Motor Activity: Normal gait Speech: Unremarkable Language: Adequate Fund of Knowledge: Inadequate Attention and Concentration: Adequate Memory: Unremarkable Mood: Appropriate Affect: Appropriate Thought Process & Associations: Intact, Goal directed, Linear Thought Content: Appropriate Hallucination Type: None Delusion Type: None Suicidal Ideation: No Suicidal Plan: No Suicidal Intention: No Homicidal Ideation: No Homicidal Plan: No Homicidal Intention: No Insight: Fair Judgment: Impulsive Discharge/Advance Care Plan - Results Vital Signs: Last Vital Signs Temp 97.6 F 07/18/18 05:50 Pulse 79 07/18/18 05:50 Resp 17 07/18/18 05:50 BP 135/83 07/18/18 05:50 Pulse Ox 96 07/18/18 05:50 Lab Results: Abnormal Lab Results 07/17/18 07/17/18 07/18/18 16:11 20:40 07:17 POC Glucose 169 H 154 H 90 07/18/18 11:10 POC Glucose 172 H Laboratory Results Hemoglobin A1c 6.8 % (4.3-6.0) H 07/08/18 09:48 Triglycerides 112 mg/dL (42-150) 07/08/18 09:48 Cholesterol 166 mg/dL (120-200) 07/08/18 09:48 LDL Cholesterol, Calc 94 mg/dL (0-99) 07/08/18 09:48 HDL Cholesterol 50.0 mg/dL (40.0-60.0) 07/08/18 09:48 TSH 0.897 uIU/mL (0.358-3.740) 07/08/18 09:48 Valproic Acid 90 mcg/mL (50-100) 07/09/18 07:23 Summary of Procedures: none Imaging: ITS Impressions Head CT 07/06/18 15:38 CONCLUSION: 1. 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 2. Periventricular areas of decreased attenuation bilaterally which are most severe involving the left posterior parietal white matter consistent with ischemic changes and/or possible encephalomalacia of the posterior parietal lobe. 3. Mild cerebral atrophy. 4. No acute hemorrhage, midline shift or extra-axial fluid collections. . Chest X-Ray 07/06/18 15:40 CONCLUSION: No acute cardiopulmonary process. Knee X-Ray 07/18/18 00:00 CONCLUSION: No evidence of fracture. Pending Results: None - Medications Number of antipsychotic medications at discharge: 1 - Discharge Care Plan Goals to Promote Your Health: * To prevent worsening of your condition and complications * To maintain your health at the optimal level Directions to Meet Your Goals: Take your medications as prescribed Follow your dietary instruction Follow activity as directed Keep your appointments as scheduled Take your immunizations and boosters as scheduled If your symptoms worsen call your PCP, if no PCP go to Urgent Care Center or Emergency Room For 27/02 questions related to your inpatient stay or results of tests pending at discharge, please contact Dr. Jonathan Ronquillo MD at Smoking is Dangerous to Your Health. Avoid second hand smoking
== END 2018-07-18 13:45 | disposition home or self-care (01) ==
LOC: NEPD 14:09 → NEDA 07-07 13:02 → H4EA 07-07 14:15
PROVIDERS: ADMIT Student in an Organized Health Care Education/Training Program; ATTEND Student in an Organized Health Care Education/Training Program